=== PATIENT | female | born 1960 | race Caucasian/White ===

== ENCOUNTER → 2021-08-14 15:03 | Outpatient (CLI) | payer BC, SELFPAY ==
--- NOTE | 2021-08-14 15:09 | RAD_ITS ---
STUDY: XR Knee Complete 4 Views or More 08/14/2021 4:38 PM REASON FOR EXAM: Female, 60 years old. PAIN TECHNIQUE: XR Knee Complete 4 Views or More COMPARISON: None. FINDINGS: Normal visualized distal femur. Normal visualized proximal tibia and fibula. Normal proximal tibiofibular articulation. There is mild degenerative arthrosis of the medial femorotibial compartment. There is moderate degenerative arthrosis of the lateral femorotibial compartment with moderate joint space narrowing. There is mild degenerative arthrosis of the patellofemoral articulation. The soft tissue structures are unremarkable. RAD/Knee 4 or More Views IMPRESSION: Degenerative arthrosis. Electronically Signed: Duc Jordan MD at 16:39 EST , Service support ,
== END ==
PROVIDERS: PCP Family Medicine; Referring Provider Family Medicine; Visit Provider Family Medicine
DX: M17.11 Unilateral primary osteoarthritis, right knee (principal)
CPT/HCPCS: 73564

== ENCOUNTER 2021-10-17 14:18 | Outpatient (CLI) | payer BC, SELFPAY ==
--- NOTE | 2021-10-17 14:52 | BI_ITS ---
MAMMOGRAPHY - BILATERAL SCREENING REASON FOR EXAM: Female, 60 years old. Routine annual screening examination. PERTINENT HISTORY: Non-contributory. Bilateral breast implants. TECHNIQUE: Digital bilateral breast nic (3D mammographic acquisition) in the CC and MLO projections. 2-D mediolateral oblique (MLO) and craniocaudad (CC) views of both breasts were obtained. CAD: Full Field Digital Mammography with Computer Added Detection was performed. COMPARISON: No comparison mammograms available at this time. If any prior films become available, an addendum to this report can be generated. FINDINGS: Breast Composition: The breasts are heterogeneously dense, which may obscure small masses. There are no dominant masses or suspicious calcifications. Bilateral breast implants are seen. No other significant abnormalities are identified. BI/SCRN MAMM (CAD)W/NIC BILAT IMPRESSION: Negative screening mammogram. Yearly followup mammogram recommended. (A) ASSESSMENT CATEGORY: BIRADS Category 2: Benign. A letter regarding these results will be sent to the patient by the facility within 30 days. Approximately 10% of breast cancers are not detected by mammography. A normal mammogram should not delay biopsy of a clinically suspicious abnormality. [id number] Electronically Signed: Alvaro Ramirez MD at 11:55 EST , Service support ,
== END 2021-10-17 23:59 | disposition short-term general hospital (02) ==
LOC: OPBI 14:51
PROVIDERS: PCP Family Medicine; Referring Provider Family Medicine; Visit Provider Family Medicine
DX: Z12.31 Encounter for screening mammogram for malignant neoplasm of breast (principal)
CPT/HCPCS: 77063; 77067

== ENCOUNTER 2021-10-28 10:46 | Outpatient (CLI) | payer BC, SELFPAY ==
--- NOTE | 2021-10-28 10:48 | US_ITS ---
STUDY: ULTRASOUND BREAST - LEFT REASON FOR EXAM: Female, 60 years old. Palpable lump left breast. TECHNIQUE: Axial and longitudinal images of the LEFT breast were performed with a high resolution ultrasound transducer. # OF IMAGES: 18 COMPARISON: Comparison is made with prior mammogram dated 10/17/2021. FINDINGS: LEFT Breast: There is a 1.1 cm x .7 cm x .4 cm cyst in the retroareolar region of the breast at 6 o''clock position. Adjacent to this, there is a 5 mm x 3 mm x 2 mm cyst. US/Breast Limited Unilateral IMPRESSION: 2 small cysts are seen at the 6 o''clock position the breast in the retroareolar region. ASSESSMENT CATEGORY: BIRADS Category 2: Benign. A letter regarding these results will be sent to the patient by the facility within 30 days. Electronically Signed: Alvaro Ramirez MD at 12:35 EST ,
== END 2021-10-28 23:59 | disposition short-term general hospital (02) ==
LOC: OPUS 10:46
PROVIDERS: PCP Family Medicine; Referring Provider Family Medicine; Visit Provider Family Medicine
DX: N60.02 Solitary cyst of left breast (principal)
CPT/HCPCS: 76642

== ENCOUNTER → 2022-04-13 | Outpatient (CLI) | payer BC, SELFPAY ==
[2022-04-13 10:24] LABS: Anion Gap 7 (5-15); BUN 22 mg/dL (7-18); BUN/Creat Ratio 36.2 RATIO (10-20); Calcium,Total 9.3 mg/dL (8.5-10.1); Chloride 106 mmol/L (98-107); Cholesterol 235 mg/dL (200); Creatinine, Serum 0.61 mg/dL (0.55-1.02); EST Glomerular Filtration Rate 106 mL/min (>60); Est Glom Filt Rate - Afr Amer 129 mL/min (>60); Glucose 92 mg/dL (74-106); High Density Lipoprotein 53 mg/dL; Potassium 3.8 mmol/L (3.5-5.1); Sodium Level 142 mmol/L (136-145); Triglycerides 101 mg/dL; Very Low Density Lipoprotein 20 mg/dL (5-40)
[2022-04-14 16:30] LABS: Vitamin D 1,25-Dihydroxy 57.6 pg/mL (24.8-81.5)
== END | disposition home or self-care (01) ==
PROVIDERS: PCP Family Medicine; Referring Provider Family Medicine; Visit Provider Family Medicine
DX: Z00.00 Encounter for general adult medical examination without abnormal findings (principal)
CPT/HCPCS: 36415; 80048; 80061; 82652

== ENCOUNTER → 2022-04-16 | Outpatient (CLI) | payer BC, SELFPAY ==
--- NOTE | 2022-04-16 07:17 | CT_ITS ---
STUDY: LOW DOSE CT LUNG CANCER SCREENING REASON FOR EXAM: Female, 61 years old. Smoking history of one half pack per day x30 years. RADIATION DOSAGE (If Supplied By Facility): CTDIvol = ( 2.01 ) mGy, DLP = ( 71.98 ) mGycm TECHNIQUE: No contrast was administered. Low dose technique was utilized (average mAS-38 and kVp 120). 1.25 mm axial source images with a slice interval of 1.25-mm were reconstructed in lung windows. 2.5 mm axial source images with a slice interval of 2.5-mm were reconstructed in lung windows. 5.0 mm axial source images with a slice interval of 5.0-mm were reconstructed in soft tissue windows. COMPARISON: None. FINDINGS: The lung windows show the lungs to be normally expanded. Nonspecific pleural thickening noted in both hemithoraces. No suspicious noncalcified mass or nodule. No organized infiltrate, no effusion. Soft tissue windows show a normal-appearing thyroid gland. No suspicious adenopathy. Bilateral breast implants are intact. Bony structures show degenerative change. Limited cuts through the upper abdomen do not show suspicious abnormality. There is a neural stimulator in the left flank. CT/Low Dose CT Lung Screening IMPRESSION: Lung-RADS category 2 - Continue annual screening with LDCT in 12 months. IMPORTANT NOTES FOR USE: ACR Lung-RADS Version 1.1 Assessment Categories Release Date: 2018 Category: Coded 0-4 bases on nodule(s) with highest degree of suspicion. Negative screen is defined as categories 1 and 2; a positive screen is defined as categories 3 and 4. Category 3 and 4A nodules that are unchanged on interval CT should be coded as category 2, and individuals returned to screening in 12 months. Category 4X: Category 3 or 4 nodules with additional imaging findings that increase the suspicion of lung cancer, such as spiculation, GGN that doubles in size in 1 year, enlarged lymph notes, etc. Category Modifiers: S (significant finding unrelated to lung cancer) Electronically Signed: Stephan Brewster MD at 13:27 EDT ,
== END | disposition home or self-care (01) ==
LOC: CT 07:15
PROVIDERS: PCP Family Medicine; Referring Provider Family Medicine; Visit Provider Family Medicine
DX: Z12.2 Encounter for screening for malignant neoplasm of respiratory organs (principal); Z87.891 Personal history of nicotine dependence
CPT/HCPCS: 71271

== ENCOUNTER → 2022-11-19 | Outpatient (CLI) | payer BC, SELFPAY ==
--- NOTE | 2022-11-19 07:51 | CT_ITS ---
STUDY: CT CERVICAL SPINE WITHOUT CONTRAST REASON FOR EXAM: Female, 61 years old. Right arm pain. Prior spinal cord stimulator insertion and fusion. RADIATION DOSAGE (If Supplied By Facility): CTDIvol = ( 13.55 ) mGy, DLP = ( 280.09 ) mGycm TECHNIQUE: High resolution transaxial imaging was performed without contrast material. Sagittal and coronal images were reconstructed. Individualized dose optimization techniques were used for this CT. COMPARISON: None FINDINGS: Normal craniovertebral junction. Normal anterior atlantoaxial articulation. Normal odontoid process. There is straightening of the normal cervical lordosis. Normal vertebral bodies and posterior osseous elements. The tip of the spinal cord similar device is seen at the C1-C2 level. The patient is status post anterior fusion with screw and plate fixation device and prosthetic disc at the C5-C6 level. C2-3: Normal endplates. Normal disc height and morphology. Normal central canal and intervertebral neuroforamina. C3-4: Mild degree of disc space narrowing. Minimal anterior listhesis of C3 on C4. Facet joint osteoarthritis and hypertrophy worse on the right side. Uncovertebral arthrosis. No significant stenosis is seen. C4-5: Mild degree of disc space narrowing. Mild degree of facet joint osteoarthritis. C5-6: Fusion at the C5-C6 level with the screw and plate fixation device. Prosthetic disc is seen. There is evidence of facet joint osteoarthritis and hypertrophy. No significant stenosis seen. C6-7: Moderate degree of disc space narrowing. C7-T1: Normal endplates. Normal disc height and morphology. Normal central canal and intervertebral neuroforamina. Normal visualized soft tissue structures. CT/Spine Cervical without Contras IMPRESSION: Multilevel degenerative changes, as described above. Status post anterior fusion at the C5-C6 level with prosthetic disc placement. Electrodes from a spinal cord stimulator device is seen at the C1-C2 level. Electronically Signed: Alvaro Ramirez MD at 9:12 EST ,
== END | disposition home or self-care (01) ==
PROVIDERS: PCP Family Medicine; Visit Provider Anesthesiology Pain Medicine
DX: M54.12 Radiculopathy, cervical region (principal)
CPT/HCPCS: 72125

== ENCOUNTER 2023-01-29 12:00 | Outpatient (RCR) | payer OTHER, SELFPAY ==
--- NOTE | 2023-01-22 16:50 | HP.PTEVAL ---
Patient's Visit Information LAURENCE CODY is a 62 year old F referred to Physical Therapy by Dr. Sander Mccollum DO with a diagnosis of UNILATERAL PRIMARY OSTEOARTHRITIS ,RIGHT KNEE ,ENTHESOPATHIES LOWER LIMB ,. Date of Evaluation: 01/22/23 Physical Therapist: Baltazar Herbert, PT, Cert MDT, OCS - Visit Plan Frequency: 2x /Week Duration: 4 Weeks Plan: PT INTERVENTIONS ROM/FLEXABLITY RIGHT KNEE HAMSTRINGS ,STICK ROLL CALF/HAMSTRINGS ,PRE'S QUADS/HAMS/HIP , CORE STRENGTHENING AND MPODALTIES - Subjective This 62 y/o female presents to physical therapy with right knee pain (DJD) ,and hamstring tendonitis. Patient has had right knee pain for ~ 2years which has progressively worse. Patient located global knee and posterior and calf . Patient has no back pain x-rays taken where negative. Patient had x-rays showed Progression of tricompartmental DJD severe in the lateral compartment. Aggravating walking/standing /stairs unable to kneeling/ squatting. Bending and lifting no affect. Patient has night pain and calf pain unable to straighten or bend. Alleviating rest meloxicam . Denies paresthesia/tingling . Patient coughing/sneezing -. No abnormal night pain. Patient had cervical fusion 2014 and then had revision. Then had pain stimulators. Patient has no other treatment except steroid injection. Patient is candidate right TKR but wants to hold. Patient condition affects QOL and walking. SOICAIL: . VOACTION: Human recourses. - Pain Right Knee Pain Intensity (Out of 10): 5 Pain Intensity Range: 10 - Objective POSTURE: mild forward posture knee knee flexed forward. NEURO: denies paresthesia/tingling ,reflexes L3-4,L4-5,L5-S1 2/3. GAIT: ambulates with right knee flexed with decrease stance time RLE. PALAPTION: tender posterior knee ,hamstrings media/lateral and joint line > lateral than medial. AROM: 10 -110 supine knee flexion. EDEMA: effusion knee. MMT: ( peak force) quads 20.4 ,hamstrings 10 .3 ,hip flexion 23.8 ,hip abduction 12.8. FLEXABLITY: hamstrings min tight. LUMBAR ROM: flexion min loss ,extension min loss ,side glides min loss no pain - Special Tests L/S Slump test left side: Negative L/S Slump test right side: Negative L/S Left Straight Leg Raise: Negative L/S Right Straight Leg Raise: Negative Lumbar Standing: Flexion - Mechanical Response: No effect Lumbar Standing: Flexion - Symptoms During Testing: No effect Lumbar Standing: Flexion - Symptoms After Testing: No effect Lumbar Standing: Extension - Mechanical Response: No effect Lumbar Standing: Extension - Symptoms During Testing: No effect Lumbar Standing: Extension - Symptoms After Testing: No effect Lumbar Standing: Right Side Glides - Mechanical Response: No effect Lumbar Standing: Right Side [place] - Symptoms During Testing: No effect Lumbar Standing: Right Side [place] - Symptoms After Testing: No effect Lumbar Standing: Left Side [place] - Mechanical Response: No effect Lumbar Standing: Left Side [place] - Symptoms During Testing: No effect - Balance/Special Test Scores Lower Extremity Functional Score: 31 - Goals Goal 1:: Patient to be I with HEP for knee Goal Time Frame: 4-6 Weeks Goal 2:: Patient to improve AROM 5-120 degrees to improve stairs Goal Time Frame: 4-6 Weeks Goal 3:: Patient to improve peak force quads/hams by 5-10 to improve function and gait Goal Time Frame: 4-6 Weeks Goal 4:: Patient to improve quality of gait with normal oleksandr 80% of the time. Goal Time Frame: 4-6 Weeks Goal 5:: Patient to improve LFES score by5-10 points to improve function and QOL. Goal Time Frame: 4-6 Weeks - Rehabilitation Potential Physical Therapy Diagnosis: This patient and right knee pain due to DJD severe with decrease ROM ,weakness ,decrease gait ,stairs impairs gait and ADL's and symptoms in calf appear not to be radicular symptoms thus benefit from skilled PT thus benefit from skilled PT Rehabilitation Potential: Good - Anticipated Interventions Patient/Client Instruction: Educate patient on: Condition, Plan of Care For the Purpose of:: To decrease pain, To increase ROM, To improve muscle performance and motor function, To improve ability to perform ADL's, To increase tolerance to activity/condition/position, To improve ability of physical actions for home/community/work/leisure, To improve health of tissue, To decrease soft tissue restriction, To increase flexibility/ROM, To improve endurance, To improve balance Thank you for the opportunity to evaluate your patient. For Medicare and Medicare HMO plans, please review the plan of care and approve it. It will need to be FAXED BACK to us at [phone] for Medicare purposes. For Medicare only, by signing this I certify the plan of care. Please let me know if there are questions or concerns regarding this plan of care. Physician Signature: Date:
--- NOTE | 2023-06-08 10:40 | HP.PT.NRP ---
Patient Information Patient Information: LAURENCE CODY was seen in my office for initial evaluation on 01/22/23. The following Plan of Care was established for this patient: POC Established Initial Frequency: 2x /Week Initial Duration: 4 Weeks Anticipated Interventions Patient/Client Instruction: Educate patient on: Condition and Plan of Care For the Purpose of:: To decrease pain, To increase ROM, To improve muscle performance and motor function, To improve ability to perform ADL's, To increase tolerance to activity/condition/position, To improve ability of physical actions for home/community/work/leisure, To improve health of tissue, To decrease soft tissue restriction, To increase flexibility/ROM, To improve endurance and To improve balance Last Seen Last Seen: This patient was last seen in our office . Pertinent comments regarding their Physical therapy will appear below: Patient seen for PT for right knee pain osteoarthritis for ROM and strengthening thus d/c due having TKR . At this point I will be discontinuing this patient from physical therapy. I would be happy to see this patient again in the future if found appropriate by the physician. Thank you! Baltazar Hrebert, PT, Cert MDT, OCS Balance/Gait/Functional tests Balance/Special Test Scores Lower Extremity Functional Score: 31
== END 2023-01-29 19:00 | disposition home or self-care (01) ==
LOC: PT 12:00
PROVIDERS: PCP Family Medicine; Referring Provider Orthopaedic Surgery; Visit Provider Orthopaedic Surgery
DX: M17.11 Unilateral primary osteoarthritis, right knee (principal); M76.899 Other specified enthesopathies of unspecified lower limb, excluding foot; M54.30 Sciatica, unspecified side
CPT/HCPCS: 97110; 97162

== ENCOUNTER → 2023-04-21 | Outpatient (CLI) | payer BC, SELFPAY ==
--- NOTE | 2023-04-21 08:37 | CT_ITS ---
PROCEDURE: CT RIGHT KNEE WITHOUT CONTRAST REASON FOR EXAM: Female, 62 years old. Preoperative planning for the MakoPlasty Robotic knee surgery. Knee pain. TECHNIQUE: Transaxial CT of the hip, knee and ankle were obtained. Coronal and sagittal reconstruction images of the knee were provided. Individualized dose optimization techniques were used for this CT. COMPARISON: None. FINDINGS: Standard protocol for the preoperative planning for the MakoPlasty robotic knee surgery was performed. There is mild osteoarthrosis of the hip, moderate tricompartmental arthrosis of the knee and mild arthrosis of the tibiotalar and subtalar joints. CT/Extremity Lower without Contra IMPRESSION: Preoperative MakoPlasty Robotic knee surgical CT evaluation with findings as described above. Electronically Signed: Jay Oden MD at 9:39 EDT ,
== END | disposition home or self-care (01) ==
PROVIDERS: PCP Family Medicine; Referring Provider Orthopaedic Surgery; Visit Provider Orthopaedic Surgery
DX: M17.11 Unilateral primary osteoarthritis, right knee (principal)
CPT/HCPCS: 73700

== ENCOUNTER → 2023-04-28 | Outpatient (CLI) | payer BC, SELFPAY ==
[2023-04-28 13:54] LABS: Cholesterol 228 mg/dL (200); High Density Lipoprotein 53 mg/dL; Triglycerides 129 mg/dL; Very Low Density Lipoprotein 26 mg/dL (5-40)
== END | disposition home or self-care (01) ==
LOC: MFPLAB 10:03
PROVIDERS: PCP Family Medicine; Visit Provider Family Medicine
DX: Z00.00 Encounter for general adult medical examination without abnormal findings (principal)
CPT/HCPCS: 36415; 80061; 82306

== ENCOUNTER 2023-05-04 05:39 | Day surgery (SDC) | payer BC, SELFPAY ==
[2023-04-21 09:58] LABS: Absolute Lymphocyte Count 1.56 X10^3/uL (0.83-4.51); Absolute Neutrophil Count 3.6 X10^3/uL (2.0-7.7); Basophil# 0.05 X10^3/uL; Basophil% 0.8 % (0-1); Eosinophil# 0.23 X10^3/uL; Eosinophils% 3.7 % (0-5); Hematocrit 37.7 % (37-47); Hemoglobin 11.8 g/dL (12.0-15.0); Lymphocyte # 1.56 X10^3/ul (0.83-4.51); Lymphocyte % 24.8 % (19-41); Mean Corp Hgb Conc 31.3 g/dL (32-36); Mean Corpuscular Hgb 29.4 pg (27.0-32.0); Mean Platelet Vol. 11.5 fl (6.2-12.0); Monocyte% 12.7 % (0-10); NRBC Flagged by Analyzer 0 % (0-5); Neutrophil # 3.62 X10^3/uL (2.7-7.7); Neutrophil % 57.7 % (47-70); Platelet Count 219 K/mm3 (150-450); RBC Distribution Width CV 13.5 % (11.6-14.6); RBC Distribution Width SD 46.5 fl (35.1-43.9); Red Blood Count 4.01 M/mm3 (4.2-5.4); White Blood Count 6.3 K/mm3 (4.4-11.0)
[2023-04-21 10:12] LABS: Partial Thromboplast Time 26.9 Seconds (24.1-36.2); Prothrombin Time (Protime)PT. 13.2 SECONDS (11.7-14.9)
[2023-04-21 10:28] LABS: Anion Gap 5 (5-15); BUN 29 mg/dL (7-18); Calcium,Total 9.1 mg/dL (8.5-10.1); Chloride 109 mmol/L (98-107); Creatinine, Serum 0.76 mg/dL (0.55-1.02); EST Glomerular Filtration Rate 81 mL/min (>60); Est Glom Filt Rate - Afr Amer 98 mL/min (>60); Glucose 86 mg/dL (74-106); Magnesium 2.2 mg/dL (1.6-2.6); Potassium 3.8 mmol/L (3.5-5.1); Sodium Level 142 mmol/L (136-145)
[2023-04-21 10:37] LABS: Hemoglobin A1c 5.4 % (3.8-5.6)
[2023-04-22 04:08] LABS: Fructosamine 201 umol/L (0-285)
[2023-05-04] VITALS (11 sets, daily range): BP systolic 92–128; BP diastolic 59–105; PULSE 69–84; RESP 12–18; TEMP 36.3–37.7; O2SAT 97–100; BMI 22.4
[2023-05-04] MEDS: Scopolamine 1mg/72hr Patch 1 PATCH TD (06:40)
[2023-05-04] MEDS: Celecoxib 200 MG Capsule 400 MG PO (06:41)
[2023-05-04] MEDS: Acetaminophen 500 MG Tablet 1000 MG PO (06:41)
[2023-05-04] MEDS: Gabapentin 600 MG Tablet PO (06:42)
[2023-05-04] MEDS: Lactated Ringers 1,000 ML 125 ML IV (06:45)
[2023-05-04] MEDS: Magnesium 1 GM over 15 mins IV (06:45)
--- NOTE | 2023-05-04 07:09 | HP.PCM_ITS ---
History and Physical Date of Admission: 05/04/23 [facility] [address] [place] [address] OFFICE VISIT Date of Service: 04/12/23 MR#: [id number] Acct: [id number] Name: LAURENCE CODY Rep #: [id number] : 1960 Provider: Dr. Sander Mccollum DO Age/Sex: 62/F Location: [facility] [place].CARLOZ Status: Signed Intake Vital Signs 01/13/2309:11 Height 5 ft 8 in Weight: 151 lb BMI 22.9 Intake Visit Reasons: RIGHT KNEE Chief Complaint: right knee Accompanied by: Is patient in pain?: Yes Allergies codeine Allergy (Severe, Verified 12/22/22 09:31) Nausea/Vom/Diarrheameperidine [From Demerol] Allergy (Severe, Verified 12/22/22 09:31) Nausea/Vom/Diarrhea Medications pantoprazole 40 mg tablet,delayed release tablet PO 12/22/22 [History Confirmed 04/12/23] sertraline 100 mg tablet tablet PO 12/22/22 [History Confirmed 04/12/23] latanoprost 0.005 % eye drops ml ophthalmic (eye) 01/13/23 [History Confirmed 04/12/23] [facility] Medical History (Updated 04/13/23 @ 07:[address] Sander Mccollum DO) Osteoarthritis of right knee Right knee pain Surgical History (Updated 12/22/22 @ 09:33 by Esha Lopez) Hx of cervical spine surgery Social History (Updated 04/12/23 @ 15:33 by Esha Lopez) Smoking Status: Current every day smoker tobacco type: cigarettes Smoking packs per day: 0.5 Smoking cigarettes per day: 10.0 Years smoked: 35 Smoking pack- years: 17.50 alcohol intake: current alcohol intake frequency: a few times a week HPI RIGHT KNEE Details: Parts of this documentation were recorded by a scribe, this documentation accurately reflects the service provided and the decisions made by me, Dr. Sander Mccollum DO 04/12/23 2600. LAURENCE CODY is a 62 year old F here today for right knee pain that she has had for several years. She has previously tried and failed steroid injections, knee bracing, and PT. She doesn't wish to have Supartz injections as she doesn't think they will be helpful. She states that she has a generalized right knee pain and she does have some painful popping/clicking and locking. Denies any previous surgery of the right knee. She states that the pain is severe. The pain is limiting her walking and she typically enjoys walking. 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 Reports that the numbness and tingling of the right leg has subsided. Ortho Exam General General: Yes no acute distress Neurologic: Yes alert and Yes oriented x3 Psychologic: Yes reasonable and appropriate Right Knee Skin/Wound: Yes CDI, No erythema, No ecchymosis and No swelling Homans Sign: No Knee ROM: No ROM-Extension -20 to 0 (lacking 18) and No ROM-Flexion 0-140 (94) Examination: Yes Med jt line tenderness, Yes Lat jt line tenderness, Yes Crepitus, Yes Pain with flexion, Yes Pain with extention and No TTP Pes Anserine Patella Translation: 1 Patella Grind: Yes Left Knee Patella Translation: 1 Head: Normocephalic Atraumatic Chest: symmetrical rise, non-labored breathing, no audible wheeze Abdomen: no guarding, non-rigid Supplemental Info 12/22/2022 x-ray right knee: Advanced tricompartmental DJD 01/13/2023 x-ray lumbar spine: Osteopenia with mild lower thoracic and lumbosacral spondylosis. No acute abnormality or erosive changes. Coding Level of Care Code Off vis,est,level 3 Diagnoses Primary osteoarthritis of right knee M17.11 Osteoarthritis type: primary Assessment and Plan Assessment and Plan (1) Osteoarthritis of right knee: Status: Acute Qualifiers: Osteoarthritis type: primary Qualified Code(s): M17.11 - Unilateral primary osteoarthritis, right knee Plan Patient educated that she has advanced OA of the right knee. Since she has tried and failed conservative care the next treatment step for her is a right TKA. Risks, benefits and alternatives of surgery reviewed including but not limited to bleeding, infection, nerve, artery and/or tissue damage, fracture, VTE, mechanical feel of the knee, continued pain, stiffness and expected post- operative course. Educated that the best predictor for post operative ROM is preop ROM and she is limited so she is at an increased risk of postoperative stiffness. Is often 3 months before people are happy to have the surgery performed however recovery period but she can continue to improve for up to 2 years op. Would recommend the IOVERA treatment if this is covered by insurance. She wishes to proceed with right TKA. She reports that she has had 7 surgeries and she has always woke up from anesthesia vomiting therefore would recommend a spinal as long as anesthesia is ok with this. She has a muscular spinal cord stimulator in her back but no rods or screws in the vertebral column. Will use stitches and not amggie to help reduce scarring. She wants to proceed with surgery ALEXANDRE. She is at an increased risk of infection and blood clots with her smoking. She should try stop smoking preop and 6 weeks post op to lower the risk of infection. Risks, benefits and alternatives of surgery reviewed including but not limited to bleeding, infection, nerve, artery and/or tissue damage, fracture, VTE, mechanical feel of the knee, continued pain, stiffness and expected post-operative course. Needs preop CT for MAKOplasty Tentative surgery date 05/04/2023 same-day surgery. Should send patient over to physical therapy prehab evaluation. Follow up post op or sooner if pain, swelling, numbness or associated symptoms, or concerns develop. All questions answered. Patient in agreement of plan. 04/13/23 0706 <Electronically signed by Sander Mccollum DO> Date Sander Mccollum DO Cosigner Signature: Date (if applicable) I have examined the patient and the H&P has been reviewed. There are no clinical changes since date of exam.
[2023-05-04] MEDS: Cefazolin 2 GM in 0.9% Normal Saline 100 ML IV (07:54)
[2023-05-04] MEDS: TXA 1000mg in NS100 100ml (IVPB at Incision) 660 MG IV (08:04)
[2023-05-04] MEDS: dexAMETHasone 10 MG/ML Vial IV (08:04)
[2023-05-04 08:07] LABS: Bedside Glucose 75 mg/dL (74-106)
--- NOTE | 2023-05-04 08:15 | KNEE_PTH ---
PATIENT: LAURENCE CODY LOC: [facility] [place] U#:[id number] AGE/SX: 62/F ROOM: RE05/04/[address]: Dr. Sander Mccollum DO : 1960 BED: DIS: 05/04/2023 SPEC #: [id number] RECD: 05/04/23 13:33 STATUS: FITO JOSE #: [id number] CHELA: 05/04/23 08:[address]: Sander Mccollum DEPT: SURGICAL PATHOLOGY RECD BY: Aleshia Cramer ENTERED: 05/05/23 09:41 SP TYPE: TOTAL KNEE OTHR DR: Dr. Eduar Peña MD Tissues: Knee, NOS Procedures: Decalcification bone/plaque Surgery Specimen Level IV HEADER OPERATION: ERAS, right total knee arthroplasty robotic assisted PRE-OP DIAGNOSIS: Osteoarthritis of right knee TISSUE SUBMITTED: Bone and tissue of right knee MICROSCOPIC DIAGNOSIS Bone and tissue of right knee, total knee resection: Severe degenerative joint disease. AM:mirna 05/10/2023 MICROSCOPIC DESCRIPTION Slides are reviewed. GROSS DESCRIPTION Received is one container designated bone and tissue right knee. The specimen consists of multiple fragments of grant-yellow bone measuring in aggregate 15.0 x 13.0 x 1.5 cm. Also in the specimen container are multiple fragments of yellow-white soft tissue measuring in aggregate 2.5 x 2.0 x 1.5 cm. A number of bony fragments contain articular surfaces consistent with tibial plateau and femoral condyle and displaying prominent osteophyte formation, eburnation and bone erosion. Pottery Machine Operator sections are submitted in two cassettes as follows: 1 - soft tissue, 2 - bone after decalcification. / AM:mirna 05/05/2023 TC:5 CPT: 83148, 25197
[2023-05-04] MEDS: TXA 1000mg in NS100 100ml (IVPB at Closure) 660 MG IV (08:41)
[2023-05-04] MEDS: 0.9% Normal Saline (Pres. free 10 ML Vial (09:45)
[2023-05-04] MEDS: dexAMETHasone 4 MG/ML Vial (09:45)
[2023-05-04] MEDS: Bupivacaine 0.5% PF 10 ML VIAL (09:45)
[2023-05-04] MEDS: Epinephrine (1 mg/ml) 1 MG/ML VIAL (09:45)
--- NOTE | 2023-05-04 10:08 | RAD_ITS ---
INDICATION: post op -- in PACU EXAMINATION/TECHNIQUE: X-RAY - RIGHT XR Knee 3 VIEWS COMPARISON: FINDINGS: Status post total right knee replacement. The hardware components are well aligned. Post surgical changes in the adjacent soft tissue. RAD/Knee 1 or 2 Views IMPRESSION: Status post right knee replacement with postsurgical changes. Electronically Signed: Edson Gamez DO at 17:24 EDT ,
--- NOTE | 2023-05-04 10:09 | OP.PCM_ITS ---
Operative Report Date of Procedure: 05/04/23 Preoperative diagnosis: Right knee DJD Postoperative diagnosis: Same Procedure: Right total knee arthroplasty CT guided Robotic Assisted Implant: Hickman triathlon press fit, femoral component size 3, tibial baseplate size 4, asymmetric patella size 29, polyethylene X3 size 9 CS Anesthesia: Spinal with adductor canal block Tourniquet time: 12 minutes at 300 mmHg Complications: None Condition: Stable to PACU Estimated blood loss: 200 cc Pediatric Acute Care Unit Nurse Julio Cesar Torre. My physician hospital aides and assistants teacher was a vital part of this case. He was important in appropriate retraction during the case, and protection of soft tissues during procedure. His intimate knowledge of the case and my steps aided in safe and expedient completion of the procedure as well as appropriate position of the extremity during the case. He was also vital in assisting with closure under my direct supervision. Indication for procedure: This is a 62-year-old female with long standing degenerative joint disease of the knee who has failed conservative treatment and wished to proceed with elective total knee arthroplasty. Risk benefits and alternatives were reviewed including; risk of bleeding, infection, nerve artery and tissue damage, continued pain, postoperative stiffness, venous thromboembolism, need for postoperative rehabilitation, mechanical feel to the knee, and expected postoperative course. The pre- operative CT and templating was performed with component sizing. Procedure: The patient was met in the preoperative holding area. The operative extremity was identified by both patient and physician and was marked. Patient was met by anesthesia. An adductor canal block was placed by anesthesia pos toperatively the patient was brought back to the operating room on a wheeled cart and transferred to the operating table in the supine position. Anesthesia was started. A well-padded tourniquet was placed on the operative extremity. The patient was prepped and draped in the usual sterile fashion. A timeout was called to ensure the proper patient procedure and extremity were being contemplated. An esmarch was used to exsanguinate the extremity. The tourniquet was inflated. A 10 blade scalpel was used to make a midline incision down through the skin and subcutaneous tissue. Skin retractors placed. Bovie and Aquamantis were used to perform meticulous hemostasis. full-thickness flaps were elevated medial and lateral along the joint capsule. A deep blade scalpel was used to perform a medial parapatellar arthrotomy. The knee was brought to full extension. A bovie was used to release the soft tissues off the most proximal aspect of the medial tibial plateau, a three-quarter inch curved osteotome was also used in this process. The infrapatellar fat pad was excised. The suprapatellar fat pad was excised partially anteriorolateraly and portion the anterioromedial pad was elevated from the femur. At this point our intra- articular femoral array was placed at a 45 degree angle proximal and posterior to the medial epicondyle. femoral checkpoint was placed at this time. Our t ibial array was placed greater than 1 hands breath below the incision at a 20 degree angle stab incisions were made with a 15 blade scalpel and pins were placed and attached to the tibial array , tibial checkpoint was placed in the proximal tibial metaphysis. Tourniquet was let down. At this point registration cardoso were taken throughout the knee . Once the knee was registered we then tensioned the medial and lateral ligaments in extension and 90 degrees of flexion. We then used these numbers to adjust our components within parameters to balance the knee in both flexion and extension once this was done on our monitor we then proceeded with using the robotic arm to make our tibial plateau cut, anterior and posterior chamfer and distal femur cuts. we removed the cut fragments with the use of a bovie and Christi, we did use a lamina business information manager to insure we visualized and removed all posterior osteophytes and at this time also used the Aquamantis on the posterior joint capsule. we then trialed and achieved the desired plan with a well-balanced knee. we used the green probe to stephanie the corresponding tibial rotation based on our CT template. Lug holes were drilled in the femur the tibia preparation was completed with the appropriate sized base plate pinned based on previous rotation stephanie. An appropriate sized fin punch was used on the tibia and 4 corner drill was used for the press fit component and the patella was prepared by first using a caliper to ensure sufficient bone stock and a patellar reamer to remove the desired amount of bone. lug holes drilled for an asymmetric poly. We then brought the knee through range of motion with excellent patellar tracking. We thoroughly irrigated the knee. Trial components were removed a posterior capsular injection was preformed with our standard cocktail. In addition the aqua Mantis was also used to aid in hemostasis. Betadine rinse was allowed to sit and washed out completely. Components were press-fit into place. Aricept rinse was then used followed by several more liters of irrigation after it was allowed to sit. The joint capsule was closed with #1 Ethibond [id number] followed by Vicryl in the subcutaneous tissues with maggie in the skin. Arrays and checkpoints were removed prior to closure all counts were correct stab incisions were closed with a staple standard dressing in the form of Mepilex AG for the main incision and a small Mepilex over the pin holes. Thigh-high CHRISTINE hose applied over top of dressing. Patient tolerated the procedure well and was directed to PACU in stable condition . There were no intraoperative complications.
--- NOTE | 2023-05-04 10:10 | DCINST_ITS ---
Discharge Instructions Diet Discharge Diet: No restrictions Activity Weight Bearing Status: Full weight bearing Dressing / Incision Call your doctor if you observe: Shortness of breath and Chest pain Additional Dressing/Incision Instructions:: Ice and elevate lower extremities 2 weeks while not ambulating. Ambulation is encouraged. Weight bearing as tolerated. Use assistive devise for stability. Encourage FULL knee extension and flexion 1 time EVERY time you get up and down and MULTIPLE times per day. No showering 72 hours after surgery. Begin showering postop day #3. Remove the dressing prior to shower and gently wash with warm water and antibacterial soap then pat dry and place abdominal pad (or plain gauze) and CHRISTINE hose over top. This is to be done daily. Do not submerge for 3 weeks. If not showering daily after the initial 72 hours then you must clean incision and change dressing daily. Do not allow animals near the incision area. Keep clean. Follow anti- coagulation recommendations as prescribed. Do not take any NSAIDs while on blood thinner. Do not take any additional narcotic pain medication other than what was prescribed on your surgery day without discussing with physician. Narcotic medication can be addictive. Do not drink alcohol while taking narcotics. Supplement narcotic prescription with acetaminophen 1000 mg 4 times a day. Start physical therapy. If you are not currently scheduled for physical therapy or you are unsure of appointment time please call office [facility] to arrange. Call Dr. Mccollum with any concerns. Follow Up Care Please Follow Up With: Sander Mccollum DO When: 2 weeks Test Results: Test results from this visit will be discussed in further detail at your follow- up appointment, if applicable. Discharge Plan Admission Primary Reason for Your Visit: Right total knee arthroplasty Attending Provider: Sander Mccollum Primary Care Provider: Eduar Peña Discharge Orders/Prescriptions Prescriptions: New acetaminophen [acetaminophen] 500 mg tablet 1,000 mg PO Q6H PRN Qty: 100 2RF cephalexin [cephalexin] 500 mg capsule 1,000 mg PO Q8 Qty: 4 0RF Rx Instructions: take 2 tabs at 9:00 pm and 2 tabs after 5 am when you wake up Eliquis 2.5 mg tablet 2.5 mg PO BID Qty: 28 0RF Rx Instructions: Begin morning after surgery Continued sertraline 100 mg tablet 100 mg PO Q24H pantoprazole 40 mg tablet,delayed release (DR/EC) 40 mg PO DAILY latanoprost 0.005 % drops 1 drp ophthalmic (eye) QHS Patient Comments: instill 1 drop into both eyes at bedtime Referrals / Follow Up: Eduar Peña MD [Primary Care Provider] - Disposition Disposition (needs filled in before D/C Order can be placed): Home, Self Care
[2023-05-04] MEDS: 0.9% Normal Saline 1,000 ML 125 ML IV (11:13)
[2023-05-04] MEDS: Cefazolin 1 GM/50 ML BAG IV (13:32)
[2023-05-04] MEDS: oxyCODONE 5 MG Tablet PO (13:49)
== END 2023-05-04 15:08 | disposition home or self-care (01) ==
LOC: SDC 05:44 → AC 05:44
PROVIDERS: PCP Family Medicine; Referring Provider Orthopaedic Surgery; Visit Provider Orthopaedic Surgery
PROC: 0SRC0JZ Replacement of Right Knee Joint with Synthetic Substitute, Open Approach (ICD-10-PCS; CPT 27447; principal; 2023-05-04 07:45)
DX: M17.11 Unilateral primary osteoarthritis, right knee (principal); F17.210 Nicotine dependence, cigarettes, uncomplicated; K21.9 Gastro-esophageal reflux disease without esophagitis; Z79.899 Other long term (current) drug therapy
CPT/HCPCS: 27447; S2900; 01402; 64447; 36415; 73560; 80048; 82962; 82985; 83036; 83735; 85025; 85610; 85730; 86850; 86900; 86901; 87081; 88305; 88311; 93005; 97162; C1776; J7120; J2405; J3475; J3490

== ENCOUNTER 2023-07-23 10:00 | Outpatient (RCR) | payer BC, SELFPAY ==
--- NOTE | 2023-05-07 14:51 | HP.PTEVAL_ITS ---
Patient's Visit Information Visit Information Visit Information: LAURENCE CODY is a 62 year old F referred to Physical Therapy by Dr. Sander Mccollum DO with a diagnosis of S/P R TKR 05/04/23. Date of Evaluation: 05/07/23 Physical Therapist: Meli Najera PT, Cert MDT Visit Plan Frequency: 3x /Week Duration: 4-6 Weeks Plan: POST OP R TKR REHAB. GAIT TRAINING, LE ROM, STRETCHING AND STRENGTHENING TO HELP MEET SET GOALS. 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 A LOT OF POPPING IN R KNEE WITH WALKING. LIGHT HEADED - TODAY IS NOT THE FIRST TIME - HAD IT IN THE HOSPITAL TOO. Present since: ABOUT A YEAR AGO Pain Scale: WORST 9/10, LEAST 7/10 Currently: 7/10 Is it getting better, worse or staying the same: ABOUT THE SAME Commenced as a result of: ARTHRITIS Worse: WALKING AND STANDING. GETTING UP. MOVING TOO QUICKLY. Better: ICING, ELEVATING, PAIN MEDICINE. Disturbed sleep: ABLE TO SLEEP ABOUT 3-4 HOURS AT A TIME. SLEEPING IN A RECLINER. Previous history/Previous treatment: PHYSICAL THERAPY AND INJECTIONS PRIOR TO SURGERY. Gait: GETTING AROUND WITH FWW AND 2 STEPS IN AND OUT OF HOUSE WITH 2 HR'S. Bowel or Bladder Dysfunction: NO Accidents: NO Unexplained weight loss: NO PMH/Recent major surgery: 2 NECK SPINAL FUSIONS AND 6 OTHER SPINE SURGERIES ON NECK - SPINAL STIMULATOR. OTHER: PATIENTS SISTER PRESENT THROUGHOUT SESSION TODAY. Objective Objective: THIS PATIENT WAS BROUGHT BACK TO PT IN A W/C DUE TO FEELING LIGHT- HEADED. SHE REPORTS SHE IS GETTING AROUND HER HOUSE PRETTY GOOD BUT IT WAS A LOT TO GET READY AND GET HERE TODAY AND SHE IS NERVOUS ABOUT PT. PATIENT PRESENTS WITH CHRISTINE HOSE ON AND BANDAGED KNEE. NO SIGNS OF DRAINAGE ON BANDAGE. TRANSFERS: INDEP SIT TO STAND WITH JESSICA UE ASSIST TO WALKER AND REVERSE. MIN ASSIST +1 FOR R LE WITH TRANSFER SUPINE TO SIT AND REVERSE. GAIT: SEE TUG TIME BELOW WITH FWW WOMAC score: 88/96 TU MIN & 31.49 SEC Girth L Patella 44 cm Girth 6 inch suprapatella 48 cm R knee flexion AROM: 70 degress R knee ext AROM: -15 DEG (Patient reports this is better than before surgery). R knee flex MMT; 3-/5 R knee ext MMT 3-/5 R hip MMT 3-/5 TREATMENT: REVIEWED HEP AND CHECKED TECHNIQUE AP'S, QS'S AND HEEL SLIDES. PATIENT IS USING A TOWEL AT HOME FOR ASSISTED HEEL SLIDES. PATIENT DEMO'S GOOD EX RETURN TODAY. ENCOURAGED PATIENT TO TRY TO GET IN BED (SLEEPING AND DOING EX'S IN RECLINER CURRENTLY) ABOUT 3 TIMES A DAY TO DO HEP AND TO TRY TO START SLEEPING SOME IN BED TOLERATED. PATIENT IS AGREEABLE. DISCUSSED AVOIDING propping KNEE TO ENCOURAGE FULL EXTENSION. Balance/Special Test Scores WOMAC Total Score: 88 WOMAC Percentatge: 8.3400 Goals Goal 1:: PATIENT WILL AMBULULATE 400+ FEET WITH LEAST AD INDEP'LY TO IMPROVE ACTIVITY TOLERANCE Goal Time Frame: 4-6 Weeks Goal 2:: PATIENT WILL COMPLETE 6 STANDS IN 30 SECS TO DEMONSTRATE IMPROVED FUNCTIONAL STRENGTH Goal Time Frame: 4-6 Weeks Goal 3:: PATIENT WILL COMPLETE TUG IN < 30 SECS TO DEMONSTRATE IMPROVED GAIT STABILITY Goal Time Frame: 4-6 Weeks Goal 4:: PATIENT WILL ASCEND AND DESCEND STEPS WITH ONE HANDRAIL AND MINIMAL DEVIATIONS TO HELP REINTEGRATE INTO COMMUNITY. Goal Time Frame: 6-8 Weeks Goal 5:: PATIENT WILL BE INDEP WITH A HEP FOR CONTINUED IMPROVEMENT ONCE FORMAL PHYSICAL THERAPY CONCLUDES. Goal Time Frame: 8-12 Weeks Anticipated Interventions Patient/Client Instruction: Educate patient on: Condition, Plan of Care and Risk Factors For the Purpose of:: To improve self management Therapeutic Exercise to Include: Strength training, Endurance training, Balance training, Flexibilty training, Gait and locomotor training and Neuromotor development For the Purpose of:: To decrease pain, To increase ROM, To improve muscle performance and motor function, To increase tolerance to activity/condition/position, To improve ability of physical actions for home/community/work/leisure and To improve gait and locomotor functions Cryotherapy (ice pack, ice massage): Yes For the Purpose of:: To decrease pain and To decrease swelling/inflammation Text: Thank you for the opportunity to evaluate your patient. For Medicare and Medicare HMO plans, please review the plan of care and approve it. It will need to be FAXED BACK to us at [phone] for Medicare purposes. For Medicare only, by signing this I certify the plan of care. Please let me know if there are questions or concerns regarding this plan of care. Physician Signature: Date:
--- NOTE | 2023-05-31 17:56 | HP.PTREVAL_ITS ---
Re-Evaluation Intro: Dr. Sander Mccollum, DO, It has been my pleasure to treat LAURENCE CODY over the last 7 visits for S/P R TKR 05/04/23. Please see the progress note below for an update on the physical therapy plan of care! Subjective Subjective: PATIENT REPORTS SHE IS DOING MUCH BETTER. PATIENT REPORTS HER STRENGTH AND MOBILITY IS GETTING BETTER. SHE REPORTS THERAPY IS HELPING AND SHE WANTS TO CONTINUE. PATIENT REPORTS SHE DOESN'T HAVE ANY PAIN RIGHT NOW BUT SHE STILL GETS A LOT OF SHOOTING PAINS IN HER KNEE. Objective Objective/Function: PATIENT WAS SEEN TODAY FOR RE-ASSESSMENT OF PROGRESS TOWARD THE SET PT GOALS AND THE NEED FOR FURTHER PHYSICAL THERAPY VS READINESS FOR DISCHARGE. PATIENT IS A GOOD CANDIDATE TO CONTINUE PT BASED ON PROGRESS MADE AND ROOM FOR FURTHER IMPROVEMENT. UPON EXAM TODAY: PATIENT AMBULATES INDEP'LY INTO PT WITH A STRAIGHT CANE WITH GOOD CADANCE AND EQUAL WEIGHT BEARING TIME JESSICA LE'S. SHE IS REALLY NOT DEPENDENT ON THE CANE AND WALKS JUST WELL WITHOUT THE CANE SHORT DISTANCES. NO LOB. WOMAC score: has improved from 88/96 to 46/96. TUG Time: has improved from 1 MIN & 31.49 SEC with a FWW to 9.86 SEC WITHOUT ANY AD. R knee flexion AROM: 110 degress (in supine with a heel slide). R knee ext AROM: -2 DEG R knee flex MMT; 4-/5 R knee ext MMT 4-/5 R hip MMT 4-/5 Sit to Stand from Chair without UE assist. Plan Plan Plan: CONTINUE PT 3X'S A WK X 4 WKS. POST OP R TKR REHAB. GAIT TRAINING, LE ROM, STRETCHING AND STRENGTHENING TO HELP MEET SET GOALS. Balance/Gait/Functional tests Balance/Special Test Scores WOMAC Total Score: 46 WOMAC Percentage: 52.0900 Goals Goals Goal 1:: PATIENT WILL AMBULULATE 400+ FEET WITH LEAST AD INDEP'LY TO IMPROVE ACTIVITY TOLERANCE Goal Time Frame: 4-6 Weeks Goal 2:: PATIENT WILL COMPLETE 6 STANDS IN 30 SECS TO DEMONSTRATE IMPROVED FUNCTIONAL STRENGTH Goal Time Frame: 4-6 Weeks Goal 3:: PATIENT WILL COMPLETE TUG IN < 30 SECS TO DEMONSTRATE IMPROVED GAIT STABILITY Goal Time Frame: 4-6 Weeks Goal 4:: PATIENT WILL ASCEND AND DESCEND STEPS WITH ONE HANDRAIL AND MINIMAL DEVIATIONS TO HELP REINTEGRATE INTO COMMUNITY. Goal Time Frame: 6-8 Weeks Goal 5:: PATIENT WILL BE INDEP WITH A HEP FOR CONTINUED IMPROVEMENT ONCE FORMAL PHYSICAL THERAPY CONCLUDES. Goal Time Frame: 8-12 Weeks Anticipated Interventions Anticipated Interventions Patient/Client Instruction: Educate patient on: Condition, Plan of Care and Risk Factors For the Purpose of:: To improve self management Therapeutic Exercise to Include: Strength training, Endurance training, Balance training, Flexibilty training, Gait and locomotor training and Neuromotor development For the Purpose of:: To decrease pain, To increase ROM, To improve muscle performance and motor function, To increase tolerance to activity/condition/ position, To improve ability of physical actions for home/community/work/leisure and To improve gait and locomotor functions Cryotherapy (ice pack, ice massage): Yes For the Purpose of:: To decrease pain and To decrease swelling/inflammation Re-Evaluation Ending Re-evaluation ending: Please do not hesitate to contact me at [phone] by phone or if you have questions or concerns regarding this new plan of care! Sincerely, Meli Najera, PT, Cert MDT
--- NOTE | 2023-06-25 14:16 | HP.PTREVAL ---
Re-Evaluation Intro: Dr. Sander Mccollum, DO, It has been my pleasure to treat LAURENCE CODY over the last 15 visits for S/P R TKR 05/04/23. Please see the progress note below for an update on the physical therapy plan of care! Subjective Subjective: PATIENT REPORTS SHE IS DOING A LOT BETTER AND THERAPY IS HELPING A LOT. PATIENT REPORTS SHE WANTS TO BE ABLE TO WALK ON HER PROPERTY WITHOUT PAIN. SHE REPORTS SHE NEEDS MORE STRENGTH AND MOBILITY BECAUSE HER PROPERTY IS HILLY. SHE REPORTS HER PAIN COMES AND GOES NOW. I JUST DON'T HAVE A LOT OF STRENGTH YET . SHE REPORTS UP TO 6-7/10 R KNEE PAIN AT ITS WORST NOW AND THAT IS USING IN BED WHEN SHE IS TRYING TO GET TO SLEEP. PATIENT IS REQUESTING TO CONTINUE PT. Objective Objective/Function: PATIENT WAS SEEN TODAY FOR RE-ASSESSMENT OF PROGRESS TOWARD THE SET PT GOALS AND THE NEED FOR FURTHER PHYSICAL THERAPY VS READINESS FOR DISCHARGE. PATIENT IS A GOOD CANDIDATE TO CONTINUE PT BASED ON PROGRESS MADE AND ROOM FOR FURTHER IMPROVEMENT. UPON EXAM TODAY: PATIENT AMBULATES INDEP'LY INTO PT WITHOUT ANY AD'S WITH GOOD CADANCE AND SYMMETRICAL WEIGHT BEARING TIME JESSICA LE'S. NO LOB. STEPS: PATIENT ACTUALLY DEMO'S INDEP GAIT UP AND DOWN STEPS WITH ONE LIGHT HR ASSIST RECIPRICALLY WITH VERY MINIMAL DEVIATION BUT THIS DOES PROVOKE C/O KNEE PAIN. R knee flexion AROM: 116 degrees (in supine with a heel slide). R knee ext AROM: FULL R knee flex MMT; 4/5 R knee ext MMT 4/5 R hip MMT 4/5 Plan Plan Plan: CONTINUE PT 3X'S A WK X 4 WKS. POST OP R TKR REHAB. GAIT TRAINING, LE ROM, STRETCHING AND STRENGTHENING TO HELP MEET SET GOALS. Balance/Gait/Functional tests Balance/Special Test Scores WOMAC Total Score: 28 WOMAC Percentage: 70.8400 Goals Goals Goal 1:: PATIENT WILL AMBULULATE 400+ FEET WITH LEAST AD INDEP'LY TO IMPROVE ACTIVITY TOLERANCE Goal Time Frame: 4-6 Weeks Goal Progress: Goal Met Goal 2:: PATIENT WILL COMPLETE 6 STANDS IN 30 SECS TO DEMONSTRATE IMPROVED FUNCTIONAL STRENGTH. NEW GOAL: INCREASE FUNCTIONAL STRENGTH OF R KNEE TO EASE ADL'S SUCH WALKING ON HILLY PROPERY AT HOME AND UP AND DOWN STEPS WITH LESS PAIN. Goal Time Frame: 4-6 Weeks Goal Progress: 1ST Goal Met Goal 3:: PATIENT WILL COMPLETE TUG IN < 30 SECS TO DEMONSTRATE IMPROVED GAIT STABILITY Goal Time Frame: 4-6 Weeks Goal Progress: Goal Met Goal 4:: PATIENT WILL ASCEND AND DESCEND STEPS WITH ONE HANDRAIL AND MINIMAL DEVIATIONS TO HELP REINTEGRATE INTO COMMUNITY. Goal Time Frame: 6-8 Weeks Goal Progress: Goal Met Goal 5:: PATIENT WILL BE INDEP WITH A HEP FOR CONTINUED IMPROVEMENT ONCE FORMAL PHYSICAL THERAPY CONCLUDES. Goal Time Frame: 8-12 Weeks Goal Progress: Progressing Goal 6:: NEW GOAL: INCREASE R KNEE FLEXION ROM TO 0-120 DEG FLEXION TO EASE ADL'S. Goal Time Frame: 2-4 Weeks Anticipated Interventions Anticipated Interventions Patient/Client Instruction: Educate patient on: Condition, Plan of Care and Risk Factors For the Purpose of:: To improve self management Therapeutic Exercise to Include: Strength training, Endurance training, Balance training, Flexibilty training, Gait and locomotor training and Neuromotor development For the Purpose of:: To decrease pain, To increase ROM, To improve muscle performance and motor function, To increase tolerance to activity/condition/position, To improve ability of physical actions for home/community/work/leisure and To improve gait and locomotor functions Cryotherapy (ice pack, ice massage): Yes For the Purpose of:: To decrease pain and To decrease swelling/inflammation Re-Evaluation Ending Re-evaluation ending: Please do not hesitate to contact me at [phone] by phone or if you have questions or concerns regarding this new plan of care! Sincerely, Meli Najera, PT, Cert MDT
--- NOTE | 2023-07-23 11:42 | HP.PTREVAL ---
Re-Evaluation Intro: Dr. Sander Mccollum, DO, It has been my pleasure to treat LAURENCE CODY over the last 26 visits for S/P R TKR 05/04/23. Please see the progress note below for an update on the physical therapy plan of care! Subjective Subjective: PATIENT REPORTS UP TO 5/10 R KNEE PAIN AT ITS WORST NOW AND THAT HAPPENS AT THE END OF THE DAY (IF HAS VACUUMED OR DONE HAY) OR WHEN IT WAKES HER UP AT NIGHT. 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 Objective Objective/Function: PATIENT WAS SEEN TODAY FOR RE-ASSESSMENT OF PROGRESS TOWARD THE SET PT GOALS AND THE NEED FOR FURTHER PHYSICAL THERAPY VS READINESS FOR DISCHARGE. PATIENT DENIES ANY FUNCTINAL OR ADL LIMITATIONS. WALKING 3-5 MILTES A DAY. C/O TENDERNESS IN DISTAL ITB REGION AND WITH PATELLAR MOBILIZATION ALTHOUGH PATELLAR MOBILITY IS GOOD. UPON EXAM TODAY: PATIENT AMBULATES INDEP'LY INTO PT WITHOUT ANY AD'S WITH GOOD CADANCE AND SYMMETRICAL WEIGHT BEARING TIME JESSICA LE'S. NO LOB. STAIRS: PATIENT DEMO'S INDEP GAIT UP AND DOWN STEPS WITHOUT UE ASSIST RECIPRICALLY WITHOUT DEVIATION EXCEPT MINIMAL HESITATION DESCENDING WITH L LE. R knee flexion AROM: 121 degrees (in supine with a heel slide). R knee ext AROM: FULL R knee flex MMT; 5/5 R knee ext MMT 5/5 R hip MMT 5/5 WOMAC score: 9/96 TU.48 SEC WITHOUT AD Girth L Patella 38 cm Girth 6 inch suprapatella 45.5 cm SENSATION: Decreased light touch sensation of R lateral knee. Plan Plan Plan: Follow up with Dr. Mccollum Next Week. Balance/Gait/Functional tests Balance/Special Test Scores TUG Test Time Seconds: 7.48 Tug Test: <10 sec.=free mobile 30 Second Chair Rise Test Seconds: 13 WOMAC Total Score: 9 WOMAC Percentage: 90.6300 Goals Goals Goal 1:: PATIENT WILL AMBULULATE 400+ FEET WITH LEAST AD INDEP'LY TO IMPROVE ACTIVITY TOLERANCE Goal Time Frame: 4-6 Weeks Goal Progress: Goal Met Goal 2:: PATIENT WILL COMPLETE 6 STANDS IN 30 SECS TO DEMONSTRATE IMPROVED FUNCTIONAL STRENGTH. NEW GOAL: INCREASE FUNCTIONAL STRENGTH OF R KNEE TO EASE ADL'S SUCH WALKING ON HILLY PROPERY AT HOME AND UP AND DOWN STEPS WITH LESS PAIN. Goal Time Frame: 4-6 Weeks Goal Progress: Goals Met Goal 3:: PATIENT WILL COMPLETE TUG IN < 30 SECS TO DEMONSTRATE IMPROVED GAIT STABILITY Goal Time Frame: 4-6 Weeks Goal Progress: Goal Met Goal 4:: PATIENT WILL ASCEND AND DESCEND STEPS WITH ONE HANDRAIL AND MINIMAL DEVIATIONS TO HELP REINTEGRATE INTO COMMUNITY. Goal Time Frame: 6-8 Weeks Goal Progress: Goal Met Goal 5:: PATIENT WILL BE INDEP WITH A HEP FOR CONTINUED IMPROVEMENT ONCE FORMAL PHYSICAL THERAPY CONCLUDES. Goal Time Frame: 8-12 Weeks Goal Progress: Goal Met Goal 6:: NEW GOAL: INCREASE R KNEE FLEXION ROM TO 0-120 DEG FLEXION TO EASE ADL'S. Goal Time Frame: 2-4 Weeks Goal Progress: Goal Met Anticipated Interventions Anticipated Interventions Patient/Client Instruction: Educate patient on: Condition, Plan of Care and Risk Factors For the Purpose of:: To improve self management Therapeutic Exercise to Include: Strength training, Endurance training, Balance training, Flexibilty training, Gait and locomotor training and Neuromotor development For the Purpose of:: To decrease pain, To increase ROM, To improve muscle performance and motor function, To increase tolerance to activity/condition/position, To improve ability of physical actions for home/community/work/leisure and To improve gait and locomotor functions Cryotherapy (ice pack, ice massage): Yes For the Purpose of:: To decrease pain and To decrease swelling/inflammation Re-Evaluation Ending Re-evaluation ending: Please do not hesitate to contact me at [phone] by phone or if you have questions or concerns regarding this new plan of care! Sincerely, Meli Najera, PT, Cert MDT
== END 2023-07-23 19:00 | disposition home or self-care (01) ==
LOC: PT 10:00
PROVIDERS: PCP Family Medicine; Referring Provider Orthopaedic Surgery; Visit Provider Orthopaedic Surgery
DX: M17.11 Unilateral primary osteoarthritis, right knee (principal); Z96.651 Presence of right artificial knee joint
CPT/HCPCS: 97110; 97162; 97164; 97530

== ENCOUNTER → 2024-02-02 | Outpatient (CLI) | payer BC, SELFPAY ==
[2024-02-02 17:46] LABS: Absolute Lymphocyte Count 1.95 X10^3/uL (0.83-4.51); Absolute Neutrophil Count 3.8 X10^3/uL (2.0-7.7); Basophil# 0.06 X10^3/uL; Basophil% 0.9 % (0-1); Eosinophil# 0.22 X10^3/uL; Eosinophils% 3.2 % (0-5); Hematocrit 37.1 % (37-47); Hemoglobin 11.2 g/dL (12.0-15.0); Lymphocyte # 1.95 X10^3/ul (0.83-4.51); Lymphocyte % 28.4 % (19-41); Mean Corp Hgb Conc 30.2 g/dL (32-36); Mean Corpuscular Hgb 26.2 pg (27.0-32.0); Mean Corpuscular Volume 86.9 fL (81-99); Mean Platelet Vol. 12.2 fl (6.2-12.0); Monocyte# 0.84 X10^3/uL; Monocyte% 12.2 % (0-10); NRBC Flagged by Analyzer 0 % (0-5); Neutrophil # 3.78 X10^3/uL (2.7-7.7); Platelet Count 261 K/mm3 (150-450); RBC Distribution Width CV 17.3 % (11.6-14.6); RBC Distribution Width SD 55.4 fl (35.1-43.9); Red Blood Count 4.27 M/mm3 (4.2-5.4); White Blood Count 6.9 K/mm3 (4.4-11.0)
[2024-02-02 18:14] LABS: ALB/GLOB Ratio 1.2 RATIO (0.9-2.4); AST(SGOT) 21 U/L (15-37); Alanine Aminotransfer ALT/SGPT 22 U/L (13-56); Albumin, Serum 3.6 g/dL (3.2-5.0); Alkaline Phosphatase 88 U/L (45-117); Anion Gap 4 (5-15); BUN 19 mg/dL (7-18); BUN/Creat Ratio 26.2 RATIO (10-20); Calcium,Total 8.9 mg/dL (8.5-10.1); Chloride 111 mmol/L (98-107); Creatinine, Serum 0.73 mg/dL (0.55-1.02); EST Glomerular Filtration Rate 86 mL/min (>60); Est Glom Filt Rate - Afr Amer 104 mL/min (>60); Globulin 3.1 g/dL (2.2-4.2); Glucose 96 mg/dL (74-106); Protein, Total 6.7 g/dL (6.4-8.2); Sodium Level 142 mmol/L (136-145); Thyroid Stim Hormone (TSH) 2.33 uIU/mL (0.358-3.74)
== END | disposition home or self-care (01) ==
LOC: MFPLAB 15:37
PROVIDERS: PCP Family Medicine; Visit Provider Family Medicine
DX: R63.4 Abnormal weight loss (principal)
CPT/HCPCS: 36415; 80053; 84443; 85025

== ENCOUNTER → 2024-03-22 | Outpatient (CLI) | payer BC, SELFPAY ==
[2024-03-22 16:20] LABS: Anion Gap 4 (5-15); BUN 20 mg/dL (7-18); BUN/Creat Ratio 30.6 RATIO (10-20); Chloride 111 mmol/L (98-107); Creatinine, Serum 0.65 mg/dL (0.55-1.02); EST Glomerular Filtration Rate 97 mL/min (>60); Est Glom Filt Rate - Afr Amer 117 mL/min (>60); Glucose 98 mg/dL (74-106); Potassium 3.7 mmol/L (3.5-5.1); Sodium Level 142 mmol/L (136-145)
== END | disposition home or self-care (01) ==
LOC: MFPLAB 14:02
PROVIDERS: PCP Family Medicine; Visit Provider Family Medicine
DX: R19.7 Diarrhea, unspecified (principal)
CPT/HCPCS: 36415; 80048

== ENCOUNTER → 2024-03-23 | Outpatient (CLI) | payer BC, SELFPAY | END | disposition home or self-care (01) | LOC: LABSPEC 11:18 | PROVIDERS: PCP Family Medicine; Visit Provider Family Medicine | DX: R19.7 Diarrhea, unspecified (principal) | CPT/HCPCS: 87493; 87506 ==

== ENCOUNTER → 2024-04-18 | Outpatient (CLI) | payer BC, SELFPAY ==
--- NOTE | 2024-04-18 12:30 | COLBX_PTH ---
PATIENT: LAURENCE CODY LOC: [facility] U#:[id number] AGE/SX: 63/F ROOM: RE04/18/[address]: Dr. Darrick Brown MD : 1960 BED: DIS: 04/18/2024 SPEC #: [id number] RECD: 04/19/24 07:38 STATUS: FITO GARCIA #: [id number] CHELA: 04/18/24 12:[address]: Darrick Brown DEPT: SURGICAL PATHOLOGY RECD BY: Aleshia Cramer ENTERED: 04/19/24 07:39 SP TYPE: COLON BX OTHR DR: Dr. Eduar Peña MD Tissues: COLON BIOPSY Procedures: Surgery Specimen Level IV HEADER OPERATION: Right and left colon polypectomy PRE-OP DIAGNOSIS: rule out microscopic colitis TISSUE SUBMITTED: Right and left colon biopsy MICROSCOPIC DIAGNOSIS Right and left colon, biopsy: Fragments of colonic mucosa with changes consistent with collagenous colitis. See comment. JAY/ 04/20/2024 COMMENT Trichrome stain with matched controls is used in the evaluation of the specimen and shows thickening of the subepithelial collegian band, consistent collagenous colitis. Correlation with clinical, endoscopic findings and appropriate follow-up are necessary. MICROSCOPIC DESCRIPTION Slides are reviewed. GROSS DESCRIPTION Received in fixative is one container labeled with the patient's name and designated Right and left colon biopsy. The specimen consists of multiple irregular fragments of light grant soft tissue that in aggregate measure 1.5 x 0.7 x 0.1 cm. The specimen is totally submitted in one cassette. / 04/19/2024 TC:5 CPT:79432,84123
== END | disposition home or self-care (01) ==
LOC: LABSPEC 15:42
PROVIDERS: PCP Family Medicine; Referring Provider Internal Medicine Gastroenterology; Visit Provider Internal Medicine Gastroenterology
DX: R19.7 Diarrhea, unspecified (principal)
CPT/HCPCS: 88305

== ENCOUNTER → 2024-09-05 | Outpatient (CLI) | payer BC, SELFPAY ==
[2024-09-05 12:53] LABS: Anion Gap 4 (5-15); BUN 19 mg/dL (7-18); BUN/Creat Ratio 30.3 RATIO (10-20); Calcium,Total 8.9 mg/dL (8.5-10.1); Chloride 111 mmol/L (98-107); Cholesterol 244 mg/dL (200); Creatinine, Serum 0.63 mg/dL (0.55-1.02); EST Glomerular Filtration Rate 102 mL/min (>60); Est Glom Filt Rate - Afr Amer 123 mL/min (>60); Glucose 92 mg/dL (74-106); High Density Lipoprotein 56 mg/dL; Potassium 4.3 mmol/L (3.5-5.1); Sodium Level 142 mmol/L (136-145); Triglycerides 139 mg/dL; Very Low Density Lipoprotein 28 mg/dL (5-40)
[2024-09-10 15:06] LABS: Cotinine Screen Blood <1.0 ng/mL (.); Nicotine Blood <1.0 ng/mL (.)
== END | disposition home or self-care (01) ==
LOC: MFPLAB 09:41
PROVIDERS: PCP Family Medicine; Referring Provider Family Medicine; Visit Provider Family Medicine
DX: Z00.00 Encounter for general adult medical examination without abnormal findings (principal)
CPT/HCPCS: 36415; 80048; 80061; 80323; G0480

== ENCOUNTER 2024-10-11 07:39 | Day surgery (SDC) | payer SELFPAY ==
[2024-10-11] VITALS (13 sets, daily range): BP systolic 116–145; BP diastolic 67–96; PULSE 65–87; RESP 16–18; TEMP 36.1–37.6; O2SAT 90–100; BMI 21.1
[2024-10-11] MEDS: 0.9% Normal Saline (1000mL) 1,000 ML 15 ML IV (08:10)
--- NOTE | 2024-10-11 08:56 | PRE.ANES_ITS ---
ASA Classification* ASA Classification ASA Classification: 2 Assessment & Plan Anesthesia* Anesthesia Assessment Anesthesia Assessment: Discussed sedation and/or anesthesia options, risks, benefits, and alternatives with patient/parents/legal guardian/POA. Questions invited. The patient/parents/legal guardian/POA seems to understand and agrees to proceed with anesthesia plan. Reviewed the physical assessment, medical history, allergy history and patient home medications list prior to surgery/procedure/anesthetic and documented any changes. Performed airway and anesthesia risk assessments. Anesthesia Type Anesthesia Type: General Anesthesia Focused Assessment* Temperature: 98.7 F Pulse Rate: 65 Blood Pressure: 145/88 Respiratory Rate: 16 Pulse Ox: 100 Airway Assessment Mouth opens: >3 cm Mallampati Score: II Focused Labs Anesthesia Preop lab: CBC WBC 6.9 K/mm3 (4.4-11.0) 02/02/24 15:37 RBC 4.27 M/mm3 (4.2-5.4) 02/02/24 15:37 Hgb 11.2 g/dL (12.0-15.0) L 02/02/24 15:37 Hct 37.1 % (37-47) 02/02/24 15:37 Plt Count 261 K/mm3 (150-450) 02/02/24 15:37 CHEMISTRY Potassium 4.3 mmol/L (3.5-5.1) 09/05/24 09:49 Sodium 142 mmol/L (136-145) 09/05/24 09:49 Magnesium 2.2 mg/dL (1.6-2.6) 04/21/23 09:09 BUN 19 mg/dL (7-18) H 09/05/24 09:49 Creatinine 0.63 mg/dL (0.55-1.02) 09/05/24 09:49 Glucose 92 mg/dL (74-106) 09/05/24 09:49 POC Glucose 75 mg/dL (74-106) 05/04/23 06:50 TSH 2.33 uIU/mL (0.358-3.74) 02/02/24 15:37 COAG PT 13.2 SECONDS (11.7-14.9) 04/21/23 09:09 Pre-Assessment Diagnosis/Proposed Procedure Planned Operative Procedure(s): (B) Bilateral lower eyelid blepharoplasty Anesthesia History 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 When Was Last Pacemaker Check QUESTION #4 FULL TEXT: You/Your Family Experience fever (hyperthermia) with Anesthesia Last Oral Intake Last Oral intake: Last Oral Intake NPO since 06:45 10/11/24 08:02 Meds taken in AM with sips of Yes 10/11/24 08:02 water? 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 Female Yes 10/06/24 13:18 HX of Motion Sickness No 10/06/24 13:18 HX of N/V After Surgery Yes 10/06/24 13:18 Non-Smoker Yes 10/06/24 13:18 Duration of Surgery greater Yes 10/06/24 13:18 than 60 minutes Number of Risk Factors 4 10/06/24 13:18 PONV Score Severe Risk 10/06/24 13:18 Height & Weight Height & Weight: Anesthesia: Height & Weight Height 5 ft 8 in 10/11/24 08:02 Weight: 63.049 kg 10/11/24 08:02 Body Mass Index (BMI) 21.1 10/11/24 08:02 Respiratory Assessment Respiratory Assessment - superintendent of schools: Respiratory Tract Infection Hx - superintendent of schools Hx Respiratory Tract Infection No 10/06/24 13:18 STOP Sleep Apnea STOP Sleep Apnea - superintendent of schools: STOP Sleep Apnea - superintendent of schools Hx Hypertension No 10/06/24 13:18 Hx Sleep Apnea No 10/06/24 13:18 CPAP BIPAP Do you snore loudly (louder No 10/06/24 13:18 than talking or can be heard Do you often feel tired/ No 10/06/24 13:18 fatigued/ sleepy during daytime? Has anyone observed you stop No 10/06/24 13:18 breathing during sleep? STOP Results Negative 10/06/24 13:18 QUESTION #5 FULL TEXT : Do you snore loudly (louder than talking or can be heard through closed doors)? 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 Specify any problems Hx of Preganancy in last 3 No 10/06/24 13:18 Months Nurse Filling Out Transfusion VCHRISTIN 10/06/24 13:18 & Questions: Date: 10/06/24 10/06/24 13:18 Time: 13:19 10/06/24 13:18 Patient unable to answer at this time (ie. confused, unrespo /Reproduction History /Reproductive History - superintendent of schools: /Reproductive Hx- superintendent of schools Hx Now No 10/06/24 13:18 Gestational Age (in weeks): EDC: Hx Hx Para Hx Section SAB No 10/06/24 13:18 Active Medications Active Medications: Current Medications Generic Name Dose Route Start Last Admin Trade Name Freq PRN Reason Stop Dose Admin Cefazolin Sodium 2 gm/ N/A 20 mls @ 400 mls/hr 10/11/24 09:20 IV 10/11/24 09:22 PREOP ONE Sodium Chloride 1,000 mls @ 15 mls/hr 10/11/24 07:45 10/11/24 08:10 IV 10/16/24 21:04 15 mls/hr .Q48H SOFIE Administration Protocol PFS Medical History Former smoker Irritable bowel syndrome Preop testing Wears contact lenses Wears glasses Arthritis Gastric reflux Osteoarthritis of right knee Right knee pain Home Medications ?Medication ?Instructions ?Recorded ?Last Taken ?Type pantoprazole 40 mg tablet,delayed 40 mg PO DAILY 12/22/22 10/11/24 History release sertraline 100 mg tablet 100 mg PO Q24H 12/22/22 Unknown History latanoprost 0.005 % eye drops 1 drp ophthalmic (eye) QHS 01/13/23 Unknown History Allergy/AdvReac Type Severity Reaction Status Date / Time codeine Allergy Severe Nausea/Vom/ Verified 10/11/24 08:01 Diarrhea meperidine (From Demerol) Allergy Severe Nausea/Vom/ Verified 10/11/24 08:01 Diarrhea Surgical History History of total knee replacement History of spinal surgery Hx of cervical spine surgery Social History Smoking Status: Former smoker alcohol intake: current alcohol intake frequency: a few times a week details: occasional substance use type: does not use additional social history: asa daily, no history of blood clots Review of Systems (Anesthesia) ROS Narrative System reviewed and no additional complaints, except as documented.
--- NOTE | 2024-10-11 09:00 | HP.PCM.SX_ITS ---
HPI - General HPI Narrative LAURENCE CODY, is a 63 F who presents for lower eyelid blepharoplasty. Current Encounter (DATE OF SURGERY H&P UPDATE): I saw and examined the patient this morning in pre-operative holding. We discussed risks and benefits of today's surgery and they would like to proceed. NO CHANGE in health history since last seen and evaluated. Ready to proceed with surgery. [facility] Medical History Former smoker Irritable bowel syndrome Preop testing Wears contact lenses Wears glasses Arthritis Gastric reflux Osteoarthritis of right knee Right knee pain Home Medications ?Medication ?Instructions ?Recorded ?Last Taken ?Type pantoprazole 40 mg tablet,delayed 40 mg PO DAILY 12/22/22 10/11/24 History release sertraline 100 mg tablet 100 mg PO Q24H 12/22/22 Unknown History latanoprost 0.005 % eye drops 1 drp ophthalmic (eye) QHS 01/13/23 Unknown History erythromycin 5 mg/gram (0.5 %) eye 1 applic EACH EYE BID #3.5 grams 10/11/24 Unknown Rx ointment ondansetron 4 mg disintegrating 4 mg PO Q8H PRN nausea and 10/11/24 Unknown Rx tablet vomiting #10 tabs oxycodone 5 mg tablet 5 mg PO Q8H PRN pain 5 days #20 10/11/24 Unknown Rx tabs white petrolatum-mineral oil 83 1 applic EACH EYE Q8H PRN dry 10/11/24 Unknown Rx %-15 % eye ointment (Artificial eye(s) 7 days #3.5 grams Eye Lubricant) Allergy/AdvReac Type Severity Reaction Status Date / Time codeine Allergy Severe Nausea/Vom/ Verified 10/11/24 08:01 Diarrhea meperidine (From Demerol) Allergy Severe Nausea/Vom/ Verified 10/11/24 08:01 Diarrhea Surgical History History of total knee replacement History of spinal surgery Hx of cervical spine surgery Social History Smoking Status: Former smoker alcohol intake: current alcohol intake frequency: a few times a week details: occasional substance use type: does not use additional social history: asa daily, no history of blood clots Vital Signs Vital Signs Vital Signs: 10/11/24 08:02 10/11/24 08:02 10/11/24 08:57 Temperature 98.7 F 98.7 F Temperature Source Temporal Pulse Rate 65 65 Respiratory Rate 16 16 Respiratory Pattern Normal Blood Pressure 145/88 H 145/88 H Blood Pressure Mean 107 Blood Pressure Source Monitor Blood Pressure Position Semi-Fowlers Blood Pressure Location Left Arm Pulse Ox 100 100 Oxygen Delivery Method Room Air Weight Weight: 139 lb Body Mass Index (BMI) 21.1 Physical Exam Narrative Pupils: PERRL EOM: EOM intact bilaterally Forehead: some chronic frontalis use to overcome dermatochalasis/brow ptosis, but minimal static forehead rhytids. Forehead is flat and does not have a convex slope amenable to easy endoscopic brow lift. Would benefit from a pretrichial/coronal brow lift, especially how she wears her hair (would hide incision well). Eyebrows: Ptotic and below orbital rim bilaterally. She's able to raise them. Upper eyelids: No tarsal show laterally, some tarsal show medially * MRD 1 was actually 3-4 mm on recheck today (slight ptosis) * Good levator function (approximately 12 mm) * No lagophthalmos * Upper lid dermatochalasis bilaterally, obstructing vertical gaze bilaterally secondary to the skin. The skin is hanging over her eyelashes and the lateral portions of her lid margin. Lower eyelids: Significant amount of retroseptal fat. Also some skin laxity, but the main problem is the excess fat leading to increased definition of the tear trough following that extends across the cheek lid subunit junction Lower eyelid snaps back quickly, but can retract >6 mm (~9 mm) Negative vector for canthal tilt (lateral canthus about 1 mm lower than medial canthus). Weak orbicularis (able to open eyelids with eyelids forced closure). Malar region: Neutral vector Assessment & Plan Assessment/Plan (1) Blepharochalasis of lower eyelid: PLAN: Plan INTERVAL H&P PLAN, DATE OF SURGERY: We will proceed with surgery today. Discussed risks, benefits and alteratives to lower eyelid blepharoplasty. Main problem is excess lower eyelid retroseptal fat. Given lower eyelid examination we will plan for supportive canthopexy at the completion of transconjunctival fat removal with possible transposition, possible pinch blepharoplasty. Patient understands risks of procedure, especially ectropion, dry eyes, hollowing, asymmetry (discussed), need for revisions.
[2024-10-11] MEDS: Lubricating Jelly 60 GM Tube 30 GM (09:03)
[2024-10-11] MEDS: Cefazolin 2 GM in Syringe IV (09:40)
[2024-10-11] MEDS: Povidone Iodine 30 ML Opthalmic Sol 1 DRP (10:13)
[2024-10-11] MEDS: Lidocaine 1% /Epi 1:100 (20ml) 20 ML Vial (10:14)
[2024-10-11] MEDS: Sodium/Calcium/Mag/Potassium 15 ML Bottle (11:34)
[2024-10-11] MEDS: Erythromycin Base 1 OPTH.TUBE 1 APPLIC OPHTHALMIC (11:49)
--- NOTE | 2024-10-11 12:07 | PCM.POST.ANE ---
Anesthesia: Postop Eval I Current Vital Signs Temperature: 98.2 F Pulse Rate: 87 Blood Pressure: 129/83 Respiratory Rate: 16 Pulse Ox: 95 Oxygen Delivery Method: Room Air Assessment Airway patent: Yes Spontaneous unlabored respirations: Yes Mental status: Awake and Calm nausea: No Vomiting: No Anesthesia Complication: No Fluid Hydration Crystalloid volume administer (ml): 1,200 Total IV fluid infused: 1,200 Progress Note Anesthesia document: Postop Eval 1 completed: Yes
[2024-10-11] MEDS: cloNIDine HCl 0.1 MG Patch TD (12:12)
--- NOTE | 2024-10-11 13:47 | POSTOPAN2_ITS ---
Anesthesia Postop Eval I Sum Postop Eval Completion status Anesthesia document: Postop Eval 1 completed: Yes Anesthesia Postop Eval I Summary Anesthesia Postop Eval I Summary: Anesthesia Postop Eval I: Assessment Summary Airway patent Yes 10/11/24 12:11 GIFT SHOP ASSISTANT.[email or web address] Spontaneous unlabored Yes 10/11/24 12:11 GIFT SHOP ASSISTANT.GDOTT respirations Mental status Awake,Calm 10/11/24 12:11 GIFT SHOP ASSISTANT.GDOTT nausea No 10/11/24 12:11 GIFT SHOP ASSISTANT.GDOTT Vomiting No 10/11/24 12:11 GIFT SHOP ASSISTANT.GDOTT Anesthesia Postop Eval I: Fluid Summary Crystalloid volume administer 1,200 10/11/24 12:11 GIFT SHOP ASSISTANT.GDOTT (ml) Colloids volume administered ( ml) Blood Product volume administered (ml) Total IV fluid infused 1,200 10/11/24 12:11 GIFT SHOP ASSISTANT.GDOTT Anesthesia Postop Eval I: Summary Notes Anesthesia Complication No 10/11/24 12:11 GIFT SHOP ASSISTANT.GDOTT Anesthesia Complication Comment: Post-operative progress note Anesthesia: Postop Eval II Evaluation Mental status: Awake Pain Level: 0 nausea: No Vomiting: No
--- NOTE | 2024-10-11 13:47 | PCM.POSTANE2 ---
Anesthesia Postop Eval I Sum Postop Eval Completion status Anesthesia document: Postop Eval 1 completed: Yes Anesthesia Postop Eval I Summary Anesthesia Postop Eval I Summary: Anesthesia Postop Eval I: Assessment Summary Airway patent Yes 10/11/24 12:11 TAX SERVICES SPECIALIST.GDOTT Spontaneous unlabored Yes 10/11/24 12:11 TAX SERVICES SPECIALIST.GDOTT respirations Mental status Awake,Calm 10/11/24 12:11 TAX SERVICES SPECIALIST.GDOTT nausea No 10/11/24 12:11 TAX SERVICES SPECIALIST.GDOTT Vomiting No 10/11/24 12:11 TAX SERVICES SPECIALIST.GDOTT Anesthesia Postop Eval I: Fluid Summary Crystalloid volume administer 1,200 10/11/24 12:11 TAX SERVICES SPECIALIST.GDOTT (ml) Colloids volume administered ( ml) Blood Product volume administered (ml) Total IV fluid infused 1,200 10/11/24 12:11 TAX SERVICES SPECIALIST.GDOTT Anesthesia Postop Eval I: Summary Notes Anesthesia Complication No 10/11/24 12:11 TAX SERVICES SPECIALIST.GDOTT Anesthesia Complication Comment: Post-operative progress note Anesthesia: Postop Eval II Evaluation Mental status: Awake Pain Level: 0 nausea: No Vomiting: No
[2024-10-11] MEDS: oxyCODONE 5 MG Tablet PO (14:00)
--- NOTE | 2024-10-11 18:01 | OP.PCM_ITS ---
Operative Report (Standard) Operative Information Date of Procedure: 10/11/24 Pre-Operative Diagnosis: Desire for lower eyelid rejuvenation Post-Operative Diagnosis: same Surgery/Procedure Performed: Lower eyelid blepharoplasty (CPT 96096 x 2, with 50 modifier) commercial account executive: Yes Shipping Clerk Packing: Padmini Be Tasks completed by production assistant: Retracting Type of Anesthesia: General RN Documented Start/Stop Times: Operation Date: 10/11/24 09:20 Case Time Into Pre-Op 10/11/24 07:44 Anesthesia Start 10/11/24 09:25 Into Room 10/11/24 09:25 Out of Pre-Op 10/11/24 09:25 Procedure Start 10/11/24 09:57 Procedure End 10/11/24 11:51 Anesthesia End 10/11/24 12:05 Out of Room 10/11/24 12:05 Into Recovery 10/11/24 12:07 Into Phase II Recovery 10/11/24 13:19 Out of Recovery 10/11/24 13:19 Out of Phase II 10/11/24 14:43 Procedure Start Time: 09:57 Procedure Stop Time: 11:51 Select all DRAINS/GRAFTS/IMPLANTS that apply: None Estimated Blood Loss: Minimal Specimen collected: No Description of surgery: Indications: Brianda Del Rio is a delightful 63-year-old female who presents for lower eyelid rejuvenation in the setting of pseudo herniation of retroseptal fat causing lower eyelid puffiness. Presents today for lower lid blepharoplasty to remove the fat. After thorough discussion, the patient understands risks, benefits, and alternatives to the procedure. Procedure details: Patient was correctly identified in preoperative holding and marked. She was taken back to the operating room where she was administered general anesthesia and prepped and draped in the sterile fashion with ophthalmic Betadine. 3 cc of 1% lidocaine with 1-200,000 epinephrine was injected into the conjunctiva and the lower lid bilaterally. He was given time to take effect. 4-0 silk retraction sutures were placed through the vaca line in the tarsus bilaterally and scleral haynes were placed with lubricating drops to protect the eyes. Using a Comanche tip Bovie, a left subtarsal transconjunctival incision just lateral to the medial puncta and to the lateral canthal region was made and dissection was carried out carefully with Comanche tip and Q-tip dissection between the muscle and the lower eyelid septum. Once dissection was taken down to the orbital rim, the septum was entered carefully with the Comanche tip. The medial, central, and lateral fat pads were identified, as was the inferior oblique muscle between the medial and central fat pads (with care taken to protect this muscle). The fat herniated through the septal incision. It was clamped with a hemostat, cut, and then the remaining fat that was clamped was cauterized with Bovie and the hemostat. There was a noticeable reduction in the puffiness of the lower eyelids as the retroseptal fat was decreased. Hemostasis was obtained with the Bovie. The same procedure was then performed on the right side. The wounds were irrigated. A small stab incision was made along the lateral orbital rim and a 4-0 PDS was then used to pass a mattress suture from the stab incision to the lateral lower tarsal plate and back through the stab incision and through the lateral orbital rim periosteum. The suture was tied to support the lower eyelid as a canthopexy. This procedure was done on both sides to support the lower eyelid. The incision was closed with an interrupted 6-0 Vicryl suture. Scleral haynes were removed as were the silk stitches. The patient tolerated the procedure well. She was awakened and taken to the PACU in stable condition. Postoperative plan: Patient was checked in the PACU. Vision and extraocular movements intact. Some swelling but no signs of bleeding/retroseptal bleeding. She was given strict return precautions, and recommendations for elevation and cold compresses. Prescriptions for ointment and pain medication were also given. Follow-up in clinic in 2 days to check progress. 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
== END 2024-10-11 14:48 | disposition home or self-care (01) ==
LOC: SDC 07:39 → AC 07:51
PROVIDERS: PCP Family Medicine; Referring Provider Surgery Plastic and Reconstructive Surgery; Visit Provider Surgery Plastic and Reconstructive Surgery
PROC: (CPT 15821; principal; 2024-10-11 09:10)
DX: H02.32 Blepharochalasis right lower eyelid (principal); H02.35 Blepharochalasis left lower eyelid; Z87.891 Personal history of nicotine dependence
CPT/HCPCS: 15821; 00103; J2405

== ENCOUNTER 2024-12-20 07:29 | Day surgery (SDC) | payer BC, SELFPAY ==
[2024-12-20] VITALS (9 sets, daily range): BP systolic 119–158; BP diastolic 79–89; PULSE 61–72; RESP 14–17; TEMP 36–36.8; O2SAT 98–100; BMI 21.1
--- NOTE | 2024-12-20 07:44 | HP.PCM.SX_ITS ---
HPI - General HPI Narrative LAURENCE CODY, is a 64 F who presents for upper eyelid blepharoplasty. Current Encounter (DATE OF SURGERY H&P UPDATE): I saw and examined the patient this morning in pre-operative holding. We discussed risks and benefits of today's surgery and they would like to proceed. NO CHANGE in health history since last seen and evaluated. Ready to proceed with surgery. [facility] Medical History (Updated 12/14/24 @ 14:49 by Kristie Ramos) Former smoker Irritable bowel syndrome Wears contact lenses Wears glasses Arthritis Gastric reflux Osteoarthritis of right knee Right knee pain Home Medications ?Medication ?Instructions ?Recorded ?Last Taken ?Type pantoprazole 40 mg tablet,delayed 40 mg PO DAILY 12/2210/11/24 History release sertraline 100 mg tablet 100 mg PO Q24H 12/22/22 Unkn own History latanoprost 0.005 % eye drops 1 drp ophthalmic (eye) Q HS 01/13/23 Unknown History white petrolatum-mineral oil 83 1 applic EACH EYE Q8H PRN dry 10/11/24 Unknown Rx %-15 % eye ointment (Artificial eye(s) 7 days #3.5 gra ms Eye Lubricant) Allergy/AdvReac Type Severity Reaction Status Date / Time codeine Allergy Severe Nausea/Vom/ Verified 12/20/24 07:37 Diarrhea meperidine (From Demerol) Allergy Severe Nausea/Vom/ Verified 12/20/24 07:37 Diarrhea Surgical History (Updated 12/14/24 @ 14:49 by Kristie Ramos) Hx of blepharoplasty History of total knee replacement History of spinal surgery Hx of cervical spine surgery Social History Smoking Status: Former smoker alcohol intake: current alcohol intake frequency: a few times a week details: occasional substance use type: does not use additional social history: asa daily, no history of blood clots Physical Exam Narrative Eyebrows: Ptotic and below orbital rim bilaterally. She's able to raise them. Upper eyelids: No tarsal show laterally, some tarsal show medially * MRD 1 was actually 3-4 mm on recheck today (slight ptosis) * Good levator function (approximately 12 mm) * No lagophthalmos * Upper lid dermatochalasis bilaterally, obstructing vertical gaze bilaterally secondary to the skin. The skin is hanging over her eyelashes and the lateral portions of her lid margin. Assessment & Plan Assessment/Plan (1) Dermatochalasis of both upper eyelids: PLAN: Plan Discussed with Mrs. Cody the influence of a brow lift on the amount of skin that can be removed on an upper eyelid blepharoplasty. She would like to just do an upper eyelid blepharoplasty at this time. The brow lift was not covered by insurance. Her plan is to defer the brow lift for now. We discussed that the coronal/pretrichial brow lift after a blepharoplasty may be too much lift (not worth large incisions/swelling/post-op course if not planning substantial lift), and that if she wanted a brow lift going forward, she may possibly be a candidate later for an endoscopic brow lift for a subtle lift for a nice result. She is in agreement with the upper eyelid blepharoplasty only at this time, which is scheduled for later this month. Patient happy with the plan. INTERVAL H&P PLAN, DATE OF SURGERY: We will proceed with surgery today. I re-iterated the above and discussed the following today: I talked the patient extensively about the risks of surgery, including bleeding, infection, damage to surrounding structures, surgical site dehiscence and wound formation, poor scaring, asymmetry, lagophthalmos, need for wound care, need for repeat operations, failure to obtain the desired result, DVT/PE, and the risks of anesthesia including , including stroke (from low blood pressure/ischemia or clot). The benefits and alternatives of this surgery were also discussed. All of their questions were answered, and they agreed to proceed with surgery.
--- NOTE | 2024-12-20 08:10 | PCM.PRE.AN2 ---
ASA Classification* ASA Classification ASA Classification: 2 Assessment & Plan Anesthesia* Anesthesia Assessment Anesthesia Assessment: Discussed sedation and/or anesthesia options, risks, benefits, and alternatives with patient/parents/legal guardian/POA. Questions invited. The patient/parents/legal guardian/POA seems to understand and agrees to proceed with anesthesia plan. Reviewed the physical assessment, medical history, allergy history and patient home medications list prior to surgery/procedure/anesthetic and documented any changes. Performed airway and anesthesia risk assessments. Anesthesia Type Anesthesia Type: MAC History Source History Obtained from:: Patient and Chart Anesthesia Focused Assessment* Temperature: 98.2 F Pulse Rate: 62 Blood Pressure: 158/88 Respiratory Rate: 17 Pulse Ox: 100 Oxygen Delivery Method: Room Air Airway Assessment Mouth opens: >3 cm Mallampati Score: I Teeth Condition: Caps/Crowns (Patient has veneers on #7,8,9 and 10.) Neck Range of motion (ROM): Limited ROM (Slight decrease in extension) Focused Labs Anesthesia Preop lab: CBC WBC 6.9 K/mm3 (4.4-11.0) 02/02/24 15:37 02/02/24 RBC 4.27 M/mm3 (4.2-5.4) 02/02/24 15:37 02/02/24 Hgb 11.2 g/dL (12.0-15.0) L 02/02/24 15:37 02/02/24 Hct 37.1 % (37-47) 02/02/24 15:37 02/02/24 Plt Count 261 K/mm3 (150-450) 02/02/24 15:37 02/02/24 CHEMISTRY Potassium 4.3 mmol/L (3.5-5.1) 09/05/24 09:49 09/05/24 Sodium 142 mmol/L (136-145) 09/05/24 09:49 09/05/24 Magnesium 2.2 mg/dL (1.6-2.6) 04/21/23 09:09 04/21/23 BUN 19 mg/dL (7-18) H 09/05/24 09:49 09/05/24 Creatinine 0.63 mg/dL (0.55-1.02) 09/05/24 09:49 09/05/24 Glucose 92 mg/dL (74-106) 09/05/24 09:49 09/05/24 POC Glucose 75 mg/dL (74-106) 05/04/23 06:50 05/04/23 TSH 2.33 uIU/mL (0.358-3.74) 02/02/24 15:37 02/02/24 COAG PT 13.2 SECONDS (11.7-14.9) 04/21/23 09:09 04/21/23 Pre-Assessment Diagnosis/Proposed Procedure Planned Operative Procedure(s): UPPER BLEPHAROPLASTY BILAT Anesthesia History Anesthesia History - business support associate: Anesthesia History - business support associate Hx Hospitalization No 12/14/24 14:39 Any Problems With Anesthesia Yes: NAUSEA AND VOMITING 12/14/24 14:39 Cholinesterase deficiency No 12/14/24 14:39 You/Your Family Experience No 12/14/24 14:39 fever (hyperthermia) with Relationship Recent Exposure to Contagious No 12/20/24 07:53 Disease Does patient have nerve Yes: INSTRUCTED TO TURN OFF 12/14/24 14:39 stimulator DOS Patient instructed to have device shut off --Does patient have Pacemaker No 12/20/24 07:53 or ICD? When Was Last Pacemaker Check QUESTION #4 FULL TEXT: You/Your Family Experience fever (hyperthermia) with Anesthesia Last Oral Intake Last Oral intake: Last Oral Intake NPO since 06:30 12/20/24 07:53 Meds taken in AM with sips of Yes 12/20/24 07:53 water? Meds patient instructed to take am of surgery Any additional information?: Yes NPO since: 06:30 (Patient took her meds with sip of water at 6:30 AM.) Meds taken in AM with sips of water?: Yes PONV PONV - business support associate: PONV - business support associate Female Yes 12/14/24 14:39 HX of Motion Sickness Yes 12/14/24 14:39 HX of N/V After Surgery Yes 12/14/24 14:39 Non-Smoker Yes 12/14/24 14:39 Duration of Surgery greater Yes 12/14/24 14:39 than 60 minutes Number of Risk Factors 5 12/14/24 14:39 PONV Score Severe Risk 12/14/24 14:39 Height & Weight Height & Weight: Anesthesia: Height & Weight Height 5 ft 8 in 12/20/24 07:53 Weight: 63 kg 12/20/24 07:53 Body Mass Index (BMI) 21.1 12/20/24 07:53 Respiratory Assessment Respiratory Assessment - business support associate: Respiratory Tract Infection Hx - business support associate Hx Respiratory Tract Infection No 12/14/24 14:39 STOP Sleep Apnea STOP Sleep Apnea - business support associate: STOP Sleep Apnea - business support associate Hx Hypertension No 12/14/24 14:39 Hx Sleep Apnea No 12/14/24 14:39 CPAP BIPAP Do you snore loudly (louder No 12/14/24 14:39 than talking or can be heard Do you often feel tired/ No 12/14/24 14:39 fatigued/ sleepy during daytime? Has anyone observed you stop No 12/14/24 14:39 breathing during sleep? STOP Results Negative 12/14/24 14:39 QUESTION #5 FULL TEXT : Do you snore loudly (louder than talking or can be heard through closed doors)? Tobacco Use History Tobacco Use History - business support associate: Tobacco Use History - business support associate Tobacco Use Smoking Status Former smoker 12/14/24 14:39 Hx Tobacco Use Yes 12/14/24 14:39 Years Smoking Packs Smoked per Day Smoking Cessation Date was Yes - quit smoking within 15 12/14/24 14:39 within the last 15 years years Hx Smoking Cessation Date Hx Smoking Cessation Counseling Hematologic Medial History Hematologic Hx - business support associate: Hematologic Medical Hx - miner pick Hx of Blood Transfusion No 12/14/24 14:39 Hx of Transfusion in last 3 No 12/14/24 14:39 Months Date of Last Transfusion (if within last 3 months) Ever experience any problems No 12/14/24 14:39 with transfusion(s)? Specify any problems Hx of Preganancy in last 3 No 12/14/24 14:39 Months Nurse Filling Out Transfusion DSCHRIBER 12/14/24 14:39 & Questions: Date: 12/14/24 12/14/24 14:39 Time: 14:41 12/14/24 14:39 Patient unable to answer at this time (ie. confused, unrespo /Reproduction History /Reproductive History - business support associate: /Reproductive Hx- business support associate Hx Now Gestational Age (in weeks): EDC: Hx Hx Para Hx Section SAB No 12/14/24 14:39 Active Medications Active Medications: Current Medications Generic Name Dose Route Start Last Admin Trade Name Freq PRN Reason Stop Dose Admin Cefazolin Sodium 2 gm/ N/A 20 mls @ 400 mls/hr 12/20/24 09:00 IV 12/20/24 09:02 PREOP ONE PFSH Medical History Former smoker Irritable bowel syndrome Wears contact lenses Wears glasses Arthritis Gastric reflux Osteoarthritis of right knee Right knee pain Home Medications ?Medication ?Instructions ?Recorded ?Last Taken ?Type pantoprazole 40 mg tablet,delayed 40 mg PO DAILY 12/22/22 12/20/24 History release sertraline 100 mg tablet 100 mg PO Q24H 12/22/22 12/19/24 History latanoprost 0.005 % eye drops 1 drp ophthalmic (eye) QHS 01/13/23 12/19/24 History white petrolatum-mineral oil 83 1 applic EACH EYE Q8H PRN dry 10/11/24 Unknown Rx %-15 % eye ointment (Artificial eye(s) 7 days #3.5 grams Eye Lubricant) Allergy/AdvReac Type Severity Reaction Status Date / Time codeine Allergy Severe Nausea/Vom/ Verified 12/20/24 07:37 Diarrhea meperidine (From Demerol) Allergy Severe Nausea/Vom/ Verified 12/20/24 07:37 Diarrhea Surgical History Hx of blepharoplasty History of total knee replacement History of spinal surgery Hx of cervical spine surgery Social History Smoking Status: Former smoker alcohol intake: current alcohol intake frequency: a few times a week details: occasional substance use type: does not use additional social history: asa daily, no history of blood clots Review of Systems (Anesthesia) ROS Narrative System reviewed and no additional complaints, except as documented.
[2024-12-20] MEDS: Cefazolin 2 GM in Syringe IV (09:05)
[2024-12-20] MEDS: Povidone Iodine 30 ML Opthalmic Sol 1 DRP (09:18)
[2024-12-20] MEDS: Bupiv/Epi 0.25% 30 ML Vial (09:20)
[2024-12-20] MEDS: Lidocaine 1% /Epi 1:100 (20ml) 20 ML Vial (09:20)
[2024-12-20] MEDS: Erythromycin Base 1 OPTH.TUBE 1 APPLIC (09:52)
--- NOTE | 2024-12-20 10:26 | PCM.POST.ANE ---
Anesthesia: Postop Eval I Current Vital Signs Temperature: 97.6 F Pulse Rate: 72 Blood Pressure: 119/81 Respiratory Rate: 14 Pulse Ox: 98 Oxygen Delivery Method: Room Air Assessment Airway patent: Yes Spontaneous unlabored respirations: Yes Mental status: Awake nausea: No Vomiting: No Anesthesia Complication: No Fluid Hydration Crystalloid volume administer (ml): 800 Total IV fluid infused: 800 Progress Note Anesthesia document: Postop Eval 1 completed: Yes
--- NOTE | 2024-12-20 14:14 | PCM.POSTANE2 ---
Anesthesia Postop Eval I Sum Postop Eval Completion status Anesthesia document: Postop Eval 1 completed: Yes Anesthesia Postop Eval I Summary Anesthesia Postop Eval I Summary: Anesthesia Postop Eval I: Assessment Summary Airway patent Yes 12/20/24 10:27 DRILL PRESS OPERATOR NUMERICAL CONTROL.HBARR Spontaneous unlabored Yes 12/20/24 10:27 DRILL PRESS OPERATOR NUMERICAL CONTROL.HBARR respirations Mental status Awake 12/20/24 10:27 DRILL PRESS OPERATOR NUMERICAL CONTROL.HBARR nausea No 12/20/24 10:27 DRILL PRESS OPERATOR NUMERICAL CONTROL.HBARR Vomiting No 12/20/24 10:27 DRILL PRESS OPERATOR NUMERICAL CONTROL.HBARR Anesthesia Postop Eval I: Fluid Summary Crystalloid volume administer 800 12/20/24 10:27 DRILL PRESS OPERATOR NUMERICAL CONTROL.HBARR (ml) Colloids volume administered ( ml) Blood Product volume administered (ml) Total IV fluid infused 800 12/20/24 10:27 DRILL PRESS OPERATOR NUMERICAL CONTROL.HBARR Anesthesia Postop Eval I: Summary Notes Anesthesia Complication No 12/20/24 10:27 DRILL PRESS OPERATOR NUMERICAL CONTROL.HBARR Anesthesia Complication Comment: Post-operative progress note Anesthesia: Postop Eval II Evaluation Mental status: Awake Pain Level: 1 nausea: No Vomiting: No
--- NOTE | 2024-12-20 14:14 | POSTOPAN2_ITS ---
Anesthesia Postop Eval I Sum Postop Eval Completion status Anesthesia document: Postop Eval 1 completed: Yes Anesthesia Postop Eval I Summary Anesthesia Postop Eval I Summary: Anesthesia Postop Eval I: Assessment Summary Airway patent Yes 12/20/24 10:27 RN [email or web address] Spontaneous unlabored Yes 12/20/24 10:27 RN [email or web address] respirations Mental status Awake 12/20/24 10:27 RN [email or web address] nausea No 12/20/24 10:27 RN [email or web address] Vomiting No 12/20/24 10:27 RN [email or web address].HBARR Anesthesia Postop Eval I: Fluid Summary Crystalloid volume administer 800 12/20/24 10:27 RN [email or web address].HBARR (ml) Colloids volume administered ( ml) Blood Product volume administered (ml) Total IV fluid infused 800 12/20/24 10:27 RN [email or web address].HBARR Anesthesia Postop Eval I: Summary Notes Anesthesia Complication No 12/20/24 10:27 RN [email or web address].HBARR Anesthesia Complication Comment: Post-operative progress note Anesthesia: Postop Eval II Evaluation Mental status: Awake Pain Level: 1 nausea: No Vomiting: No
--- NOTE | 2024-12-20 14:46 | OP.PCM_ITS ---
Operative Report (Standard) Operative Information Date of Procedure: 12/20/24 Pre-Operative Diagnosis: Dermatochalasis, bilateral upper eyelids Post-Operative Diagnosis: Same Surgery/Procedure Performed: 1) Upper eyelid blepharoplasty, bilateral (CPT:158 22 x 2 with 50 modifier) enterprise sales executive: Yes Division Chair: Padmini Be Tasks completed by urgent care physician assistant: Retracting Type of Anesthesia: MAC/Supplemental (2 cc of 50/50 mixture of 1% lidocaine with 1:200,000 epinephrine and 0.25% Marcaine with 1:200,000 epinephrine) RN Documented Start/Stop Times: Operation Date: 12/20/24 09:00 Case Time Into Pre-Op 12/20/24 07:39 Out of Pre-Op 12/20/24 08:57 Anesthesia Start 12/20/24 09:00 Into Room 12/20/24 09:00 Procedure Start 12/20/24 09:20 Procedure End 12/20/24 10:01 Anesthesia End 12/20/24 10:07 Out of Room 12/20/24 10:07 Into Recovery 12/20/24 10:10 Into Phase II Recovery 12/20/24 10:39 Out of Recovery 12/20/24 10:39 Out of Phase II 12/20/24 11:16 Procedure Start Time: 09:20 Procedure Stop Time: 10:01 Select all DRAINS/GRAFTS/IMPLANTS that apply: None Estimated Blood Loss: minimal Specimen collected: No Description of surgery: Indications: Brianda Del Rio is a delightful 64-year-old female with past medical history of upper eyelid excess skin which is interfering with her vision. Presents today for bilateral upper eyelid blepharoplasty. I talked her about the risks, benefits, and alternatives to the procedure and she elected to proceed with surgery. Procedure details: Patient was correctly identified in preoperative holding and marked. She was taken back to the operating room where she was administered sedation and prepped and draped in sterile fashion with ophthalmic Betadine solution. A timeout was performed. Appropriate upper lid blepharoplasty skin markings were then confirmed with care taken to have 9 mm between the lid crease incision and the eyelid margin centrally, with care taken not to extend medially past the puncta. The incisions did not extend lateral to the orbital rim, and they were >1 cm from the brow superiorly. The cardoso were tested with skin pinch test and it looked like there was the safe/appropriate amount of skin being excised. The skin was injected with a 50/50 mixture of 1% lidocaine with 1-200,000 epinephrine and 0.25% Marcaine with 1:200,000 epinephrine. It was given time to take effect. A 15 blade scalpel was used to excise the excess upper eyelid skin within the markings, leaving behind all of the orbicularis muscle except for a small central slip along the lid crease/area of closure so as to prevent bunching (this strip was excised with tenotomy scissors). Hemostasis was obtained with Bovie electrocautery. Incisions were closed with a running subcuticular 6-0 Prolene suture. The tails were taped with Steri-Strips. The same procedure was preformed on both upper eyelids. She tolerated the procedure well. The patient was awakened and taken to the PACU in stable condition. Surgical Findings: No lagophthalmos at the completion of the case Complications Complications: No Admit VTE Documentation VTE Mechan Device Prophylaxis: SCD's
== END 2024-12-20 11:17 | disposition home or self-care (01) ==
LOC: SDC 07:48 → AC 07:53
PROVIDERS: PCP Family Medicine; Referring Provider Surgery Plastic and Reconstructive Surgery; Visit Provider Surgery Plastic and Reconstructive Surgery
PROC: (CPT 15822; principal; 2024-12-20 08:50)
DX: H02.831 Dermatochalasis of right upper eyelid (principal); H02.834 Dermatochalasis of left upper eyelid; Z87.891 Personal history of nicotine dependence
CPT/HCPCS: 15822; A4216; J2405

== ENCOUNTER → 2025-05-04 | Outpatient (CLI) | payer BC, SELFPAY ==
--- NOTE | 2025-05-04 12:53 | CT_ITS ---
PROCEDURE: SPINE CERVICAL WITHOUT CONTRAS 05/04/2025 REASON FOR EXAM: RADICULOPATHY, CERVICAL REGION Prior cervical fusion. TECHNIQUE: SPINE CERVICAL WITHOUT CONTRAS Coronal and Sagittal reconstruction series were provided. One or more dose reduction techniques were used (e.g., Automated exposure control, adjustment of the mA and/or kV according to patient size, use of iterative reconstruction technique. RADIATION DOSE SUMMARY: CTDlvol: 12.63 mGy DLP: 245.2 mGycm COMPARISON: Prior study dated November 19 2022. FINDINGS: Alignment: Straightening of the normal cervical lordosis most likely secondary to muscular spasm. Vertebrae: Prior fusion at the C5-C6 level. Soft Tissues: Electrodes from a spinal cord stimulator device seen in the upper cervical spine. Other: C1-2: Unremarkable C2-3: Disc space is relatively well-maintained. No significant abnormality is seen. C3-4: Minimal anterior listhesis of C3 on C4 most likely secondary to facet joint osteoarthritis. C4-5: Mild degree of disc space narrowing. Facet joint osteoarthritis and hypertrophy worse on the right side. No significant stenosis seen. C5-6: Status post anterior fusion with screw and plate fixation device. Prosthetic disc is seen. There is fusion at the disc space level. Facet joint osteoarthritis and hypertrophy. This is worse on the right side. Mild right neural foraminal stenosis. C6-7: Mild degree of disc space narrowing. Spondylosis. No acute abnormality is seen C7-T1: Unremarkable. CT/Spine Cervical without Contras IMPRESSION: Stable examination. Reading Location: [facility]
== END | disposition home or self-care (01) ==
LOC: CT 12:46
PROVIDERS: PCP Family Medicine; Referring Provider Anesthesiology Pain Medicine; Visit Provider Anesthesiology Pain Medicine
DX: M54.12 Radiculopathy, cervical region (principal)
CPT/HCPCS: 72125